=== PATIENT | female | born 1935 | race Caucasian/White ===

== ENCOUNTER 2016-09-10 14:31 | Emergency (ER) | payer MEDICARE, MEDICAID ==
[~2016-09-10] VITALS: Ht 160 cm; Wt 68.0 kg
--- NOTE | 2016-09-10 14:35 | ED Fall/Injury ---
General Stated Complaint: FALL Source: patient Exam Limitations: no limitations History of Present Illness Time seen by provider: 14:33 Initial Comments To ER with reports of a fall. She is from [facility] and [facility] and reportedly fell out of her chair. She arrives per EMS. She does complain of neck pain as her only complaint. She does not recall what happened but staff reports that she did not hit her head. Cervical collar applied upon arrival to ER. She denies paresthesias or pain down either upper or lower extremity. Occurred: just prior to arrival Severity: moderate Injuries/Pain Location: neck Associated Symptoms (Fall): Neck Pain Allergies and Home Medications Allergies Coded Allergies: morphine (Verified Allergy, Severe, EDENA, 09/10/16) Constitutional: see HPI Eyes: No Symptoms Reported Ears, Nose, Mouth, Throat: no symptoms reported Respiratory: no symptoms reported Genitourinary: no symptoms reported Musculoskeletal: see HPI neck pain Skin: no symptoms reported Psychiatric/Neurological: No Symptoms Reported Physical Exam Vital Signs Vital Sign - Last 12Hours 09/10/16 14:31 Temp 98.0 Pulse 60 Resp 18 B/P 127/60 Pulse Ox 91 Capillary Refill : General Appearance: WD/WN no apparent distress HEENT: PERRL/EOMI normal ENT inspection Neck: tender lateral tender midline Respiratory: no respiratory distress no accessory muscle use Gastrointestinal: normal bowel sounds non tender soft Extremities: normal range of motion non-tender Neurologic/Psychiatric: alert normal mood/affect oriented x 3 Skin: normal color Miquel Coma Score Best Eye Response: (4) Open Spontaneously Best Verbal Response: (5) Oriented Best Motor Response: (6) Obeys Commands [place] Total: 15 Progress/Results/Core Measures Results/Orders Lab Results Laboratory Tests Test 09/10/16 14:43 Range/Units Basophils # (Auto) 0.0 0.0-0.1 10^3/uL Basophils (%) (Auto) 0 0-10 % Eosinophils # (Auto) 0.8 H 0.0-0.3 10^3/uL Eosinophils (%) (Auto) 7 0-10 % Hematocrit 40 35-52 % Hemoglobin 12.7 11.5-16.0 G/DL Lymphocytes # (Auto) 2.1 1.0-4.0 X 10^3 Lymphocytes (%) (Auto) 20 12-44 % Mean Corpuscular Hemoglobin 30 25-34 PG Mean Corpuscular Hemoglobin Concent 32 32-36 G/DL Mean Corpuscular Volume 93 80-99 FL Mean Platelet Volume 9.4 7.4-10.4 FL Monocytes # (Auto) 0.9 0.0-1.0 X 10^3 Monocytes (%) (Auto) 8 0-12 % Neutrophils # (Auto) 6.8 1.8-7.8 X 10^3 Neutrophils (%) (Auto) 65 42-75 % Platelet Count 420 H 130-400 10^3/uL Red Blood Count 4.25 L 4.35-5.85 10^6/uL Red Cell Distribution Width 13.1 10.0-14.5 % White Blood Count 10.5 4.3-11.0 10^3/uL My Orders Orders-LALITO WEBER APRN Cbc With Automated Diff (09/10/16 14:32) Ct Head/Cervical Spine Wo (09/10/16 14:32) Ct Lumbar Spine Wo (09/10/16 14:32) Cervical Collar (09/10/16 14:32) Vital Signs/I&O Vital Sign - Last 12Hours 09/10/16 14:31 Temp 98.0 Pulse 60 Resp 18 B/P 127/60 Pulse Ox 91 Diagnostic Imaging Diagonstic Imaging: CT Comments NAME: JELLY BRAVO [facility] REC#: [id number] PT STATUS: REG ER : 1935 PHYSICIAN: LALITO WEBER APRN ADMIT DATE: 09/10/16/ER Draft Date of Exam:09/10/16 CT HEAD/CERVICAL SPINE WO PROCEDURE: CT head and CT cervical spine without contrast. TECHNIQUE: Multiple contiguous axial images were obtained through the brain and cervical spine without the use of intravenous contrast. Sagittal and coronal reformations through the cervical spine were then performed. INDICATION: Fall. Head injury. COMPARISON: CT head without contrast 06/04/2009. FINDINGS: Chronic encephalomalacia in the left occipital lobe and both cerebellar hemispheres. 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 Advanced generalized cerebral and cerebellar parenchymal volume loss. No CT evidence of acute infarction. Bilateral basal ganglia calcifications. Intracranial vascular calcifications. No intracranial hemorrhage, mass effect, hydrocephalus or extra-axial fluid collections. Osseous structures are intact. The orbits and visualized paranasal sinuses are unremarkable. CT cervical spine: Examination is limited by motion artifact despite repeated scanning of the upper cervical spine. Normal alignment. Vertebral body heights are maintained. No acute fractures are identified. Degenerative endplate changes result in at least mild spinal canal narrowing at C3-C4. Uncovertebral joint and facet arthropathy result in multilevel moderate to advanced neuroforaminal narrowing bilaterally. Arterial calcifications including the carotid bifurcations. Left subclavian vascular stent. IMPRESSION: 1. No acute intracranial CT findings. 2. Cervical spine CT is limited by motion artifact. There are no acute findings identified. Dictated on workstation # [id number] Dict: 09/10/16 1535 Trans: 09/10/16 1544 LEIGH [id number] Interpreted by: ILAN THAKUR MD Electronically signed by: NAME: JELLY BRAVO [facility] REC#: [id number] PT STATUS: REG ER : 1935 PHYSICIAN: LALITO WEBER APRN ADMIT DATE: 09/10/16/ER Draft Date of Exam:09/10/16 CT LUMBAR SPINE WO PROCEDURE: CT lumbar spine without contrast. TECHNIQUE: Multiple contiguous axial images were obtained through the lumbar spine without the use of intravenous contrast. Sagittal and coronal reformations were then performed. INDICATION: Fall with back pain. FINDINGS: Sagittal reformatted images show good alignment of the vertebral bodies. Body height is well maintained with no compression fractures. Facets are intact with no pars defect. There is advanced degenerative facet disease at L4-L5 and L5-S1. There is diffuse degenerative disc disease with loss of disc space and hypertrophic bony lipping throughout the lumbar spine. There is moderate central canal stenosis at L4-L5 due to rather marked posterior facet and ligamentous hypertrophy. Paraspinal soft tissues show diffuse aneurysmal dilatation of the entire abdominal aorta. Maximal diameter is 5 cm. IMPRESSION: 1. Diffuse degenerative disc and facet disease with no acute abnormalities of the spine. There is moderate spinal stenosis noted at the L4-L5 level due to marked posterior facet and ligamentous hypertrophy. 2. Long segment abdominal aortic aneurysm measuring upwards of 5 cm in diameter. Previous CT scan of the abdomen on 05/11/2011 showed abdominal aorta measuring 3.8 cm at that time. Dictated on workstation # [id number] Dict: 09/10/16 1541 Trans: 09/10/16 1548 [facility] [id number] Interpreted by: DELANEY ÁLVAREZ MD Electronically signed by: Departure Impression Impression: Primary Impression: [facility] Qualified Code: W19.XXXA - Unspecified fall, initial encounter Additional Impression: Enlarging abdominal aortic aneurysm Disposition: 01 HOME, SELF-CARE Condition: Stable Departure-Patient Inst. Decision time for Depature: 15:54 Referrals: ALEXANDRA ZAMORA MD (PCP/Family) Primary Care Physician Patient Instructions: NO INSTRUCTIONS GIVEN Add. Discharge Instructions: 1. Return to ER for any concerns 2. Follow-up with Dr. Zamora next week 3. Be aware that you're abdominal aortic aneurysm is enlarging. On the last CT scan (in 2010) it measured about 3.8 cm and today at about 5.0 cm. This warrants follow-up but no emergent treatment. Copy Copies To 1: ALEXANDRA ZAOMRA MD, PETER J APRN Sep 10, 2016 14:35
[2016-09-10 14:51] LABS: BASOPHILS % (AUTO) 0 % (0-10); EOSINOPHILS # (AUTO) 0.8 10^3/uL (0.0-0.3); EOSINOPHILS % (AUTO) 7 % (0-10); LYMPHOCYTES # (AUTO) 2.1 X 10^3 (1.0-4.0); LYMPHOCYTES % (AUTO) 20 % (12-44); MEAN CORPUSCULAR HEMOGLOBIN 30 PG (25-34); MEAN CORPUSCULAR HGB CONC 32 G/DL (32-36); MEAN CORPUSCULAR VOLUME 93 FL (80-99); MEAN PLATELET VOLUME 9.4 FL (7.4-10.4); MONOCYTES # (AUTO) 0.9 X 10^3 (0.0-1.0); MONOCYTES % (AUTO) 8 % (0-12); NEUTROPHILS # (AUTO) 6.8 X 10^3 (1.8-7.8); NEUTROPHILS % (AUTO) 65 % (42-75); PLATELET COUNT 420 10^3/uL (130-400); RED BLOOD COUNT 4.25 10^6/uL (4.35-5.85); RED CELL DISTRIBUTION WIDTH 13.1 % (10.0-14.5); WHITE BLOOD COUNT 10.5 10^3/uL (4.3-11.0)
--- NOTE | 2016-09-10 15:44 | Diagnostic Imaging Report ---
PROCEDURE: CT head and CT cervical spine without contrast. TECHNIQUE: Multiple contiguous axial images were obtained through the brain and cervical spine without the use of intravenous contrast. Sagittal and coronal reformations through the cervical spine were then performed. INDICATION: Fall. Head injury. COMPARISON: CT head without contrast 06/04/2009. FINDINGS: Chronic encephalomalacia in the left occipital lobe and both cerebellar hemispheres. 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 Advanced generalized cerebral and cerebellar parenchymal volume loss. No CT evidence of acute infarction. Bilateral basal ganglia calcifications. Intracranial vascular calcifications. No intracranial hemorrhage, mass effect, hydrocephalus or extra-axial fluid collections. Osseous structures are intact. The orbits and visualized paranasal sinuses are unremarkable. CT cervical spine: Examination is limited by motion artifact despite repeated scanning of the upper cervical spine. Normal alignment. Vertebral body heights are maintained. No acute fractures are identified. Degenerative endplate changes result in at least mild spinal canal narrowing at C3-C4. Uncovertebral joint and facet arthropathy result in multilevel moderate to advanced neuroforaminal narrowing bilaterally. Arterial calcifications including the carotid bifurcations. Left subclavian vascular stent. IMPRESSION: 1. No acute intracranial CT findings. 2. Cervical spine CT is limited by motion artifact. There are no acute findings identified. Dictated by: Dictated on workstation # [id number]
--- NOTE | 2016-09-10 15:48 | Diagnostic Imaging Report ---
PROCEDURE: CT lumbar spine without contrast. TECHNIQUE: Multiple contiguous axial images were obtained through the lumbar spine without the use of intravenous contrast. Sagittal and coronal reformations were then performed. INDICATION: Fall with back pain. FINDINGS: Sagittal reformatted images show good alignment of the vertebral bodies. Body height is well maintained with no compression fractures. Facets are intact with no pars defect. There is advanced degenerative facet disease at L4-L5 and L5-S1. There is diffuse degenerative disc disease with loss of disc space and hypertrophic bony lipping throughout the lumbar spine. There is moderate central canal stenosis at L4-L5 due to rather marked posterior facet and ligamentous hypertrophy. Paraspinal soft tissues show diffuse aneurysmal dilatation of the entire abdominal aorta. Maximal diameter is 5 cm. IMPRESSION: 1. Diffuse degenerative disc and facet disease with no acute abnormalities of the spine. There is moderate spinal stenosis noted at the L4-L5 level due to marked posterior facet and ligamentous hypertrophy. 2. Long segment abdominal aortic aneurysm measuring upwards of 5 cm in diameter. Previous CT scan of the abdomen on 05/11/2011 showed abdominal aorta measuring 3.8 cm at that time. Dictated by: Dictated on workstation # [id number]
[2016-09-10 16:25] VITALS: BP 149/82
== END 2016-09-10 16:25 | disposition home or self-care (01) ==
LOC: EDUNIT# 14:31 → ER 14:32
DX: S19.9XXA Unspecified injury of neck, initial encounter (principal); M47.816 Spondylosis without myelopathy or radiculopathy, lumbar region; I71.4 Abdominal aortic aneurysm, without rupture; W07.XXXA Fall from chair, initial encounter; Y92.122 Bedroom in nursing home as the place of occurrence of the external cause; Y99.8 Other external cause status
CPT/HCPCS: 36415; 70450; 72125; 72131; 85025; 99283

== ENCOUNTER → 2016-09-19 | Outpatient (CLI) | payer MEDICARE, MEDICAID ==
[~2016-09-19] MED LIST: ALBU2.5V4; ALPR0.254 PO; AMLO5TAB2 PO; ASPI-808 PO; DONE10TA41 PO; DULO60CA58 PO; FENT1PAT6; FENT1PAT8; GABA-490 PO; HYDR-3812 PO; IBUP-1773 PO; LISI-556 PO; LISI2.5T; MECL-106 PO; ONDA4TAB11 PO; POTA10TA10 PO; RANI150T11 PO; ROPI3TAB2 PO; RT-ALBUINH INH; SENN-140 PO
--- OUTSIDE RECORDS SUMMARY | 2016-09-19 11:26 | XMS REPORT | Continuity of Care Document ---
Author Author [facility] Organization [facility] Address Unknown Phone Unavailable Care Team Providers Care Manager Enterprise Content Management Name Role Phone ALEXANDRA ZAMORA MD PCP Insurance Providers Payer Name Policy Number Subscriber Name Relationship Wps Medicare [id number] Ольга Caal 18 Self / Same As Patient Blue Cross Mcr Supp [id number] Ольга Caal 18 Self / Same As Patient [employer] Ольга Caal 18 Self / Same As Patient Advance Directives Directive Response Recorded Date/Time Advance Directives No 09/10/16 2:39pm Resuscitation Status Full Code 09/10/16 2:39pm Chief Complaint and Reason for Visit Chief Complaint Trauma-Non Activation [facility] Enlarging abdominal aortic aneurysm Problems Active Problems Medical Problem Onset Date Status Enlarging abdominal aortic aneurysm Unknown Acute [facility] Unknown Acute Medications No medication information available. Social History Social History Problem Response Recorded Date/Time Alcohol Use Denies Use 09/10/2016 2:39pm Recreational Drug Use No 09/10/2016 2:39pm Recent Foreign Travel No 09/10/2016 2:31pm Recent Infectious Disease Exposure No 09/10/2016 2:31pm Smoking Status Current Everyday Smoker 09/10/2016 2:39pm Type Used Cigarettes 09/10/2016 2:39pm Recent Hopitalizations No 09/10/2016 2:39pm Query Response Start Date Stop Date Smoking Status Current Everyday Smoker Hospital Discharge Instructions No hospital discharge instructions. Plan of Care Discharge Date 09/10/16 4:25pm Disposition 01 HOME, SELF-CARE Condition at Discharge Stable Instructions/Education Provided NO INSTRUCTIONS GIVEN Prescriptions See Medication Section Referrals ALEXANDRA ZAMORA MD - Primary Care Physician Additional Instructions/Education 1. Return to ER for any concerns 2. Follow-up with Dr. Zamora next week 3. Be aware that you're abdominal aortic aneurysm is enlarging. On the last CT scan (in 2010) it measured about 3.8 cm and today at about 5.0 cm. This warrants follow-up but no emergent treatment. Functional Status No functional status results. Allergies, Adverse Reactions, Alerts Allergen Type Severity Reaction Status Last Updated Morphine Allergy Severe EDENA Active 09/10/16 Immunizations No immunization records. Vital Signs Acute Vital Signs Vital Response Date/Time Temperature (Fahrenheit) 98 degrees F (97.6 - 99.5) 09/10/2016 2:31pm Temperature (Calculated Celsius) 36.6696 degrees C (36.4 - 37.5) 09/10/2016 2 :31pm Temperature Source Tympanic 09/10/2016 2:31pm Pulse Rate (adult) 60 bpm (60 - 90) 09/10/2016 2:31pm Respiratory Rate 18 bpm (12 - 24) 09/10/2016 2:31pm O2 Sat by Pulse Oximetry 91 % (88 - 100) 09/10/2016 2:31pm Blood Pressure 127/60 mm Hg 09/10/2016 2:31pm Blood Pressure Mean 82 mm Hg 09/10/2016 2:31pm Pain Numeric Pain Scale 5-Moderate Pain 09/10/2016 2:31pm Height (Feet) 5 feet 09/10/2016 2:31pm Height (Inches) 3 inches 09/10/2016 2:31pm Height (Calculated Centimeters) 160.800610 cm 09/10/2016 2:31pm Weight (Pounds) 150 pounds 09/10/2016 2:31pm Weight (Calculated Kilograms) 68.308703 kilograms 09/10/2016 2:31pm Capillary Refill Capillary Refill Less Than 3 Seconds 09/10/2016 2:31pm Height 5 ft 3 in Weight 150 lb Body Mass Index 26.6 kg/m^2 Results Laboratory Results Test Name Result Units Flags Reference Collection Date/Time Result Date/ Time Comments White Blood Count 10.5 10^3/uL 4.3-11.0 09/10/2016 2:43pm 09/10/2016 2: 54pm Red Blood Count 4.25 10^6/uL L 4.35-5.85 09/10/2016 2:43pm 09/10/2016 2: 54pm Hemoglobin 12.7 G/DL 11.5-16.0 09/10/2016 2:43pm 09/10/2016 2:54pm Hematocrit 40 % 35-52 09/10/2016 2:43pm 09/10/2016 2:54pm Mean Corpuscular Volume 93 FL 80-99 09/10/2016 2:43pm 09/10/2016 2: 54pm Mean Corpuscular Hemoglobin 30 PG 25-34 09/10/2016 2:43pm 09/10/2016 2: 54pm Mean Corpuscular Hemoglobin Concent 32 G/DL 32-36 09/10/2016 2:43pm 10/2016 2:54pm Red Cell Distribution Width 13.1 % 10.0-14.5 09/10/2016 2:43pm 2016 2:54pm Platelet Count 420 10^3/uL H 130-400 09/10/2016 2:43pm 09/10/2016 2:54pm Mean Platelet Volume 9.4 FL 7.4-10.4 09/10/2016 2:43pm 09/10/2016 2: 54pm Neutrophils (%) (Auto) 65 % 42-75 09/10/2016 2:43pm 09/10/2016 2:54pm Lymphocytes (%) (Auto) 20 % 12-44 09/10/2016 2:43pm 09/10/2016 2:54pm Monocytes (%) (Auto) 8 % 0-12 09/10/2016 2:43pm 09/10/2016 2:54pm Eosinophils (%) (Auto) 7 % 0-10 09/10/2016 2:43pm 09/10/2016 2:54pm Basophils (%) (Auto) 0 % 0-10 09/10/2016 2:43pm 09/10/2016 2:54pm Neutrophils # (Auto) 6.8 X 10^3 1.8-7.8 09/10/2016 2:43pm 09/10/2016 2: 54pm Lymphocytes # (Auto) 2.1 X 10^3 1.0-4.0 09/10/2016 2:43pm 09/10/2016 2: 54pm Monocytes # (Auto) 0.9 X 10^3 0.0-1.0 09/10/2016 2:43pm 09/10/2016 2: 54pm Eosinophils # (Auto) 0.8 10^3/uL H 0.0-0.3 09/10/2016 2:43pm 09/10/2016 2 :54pm Basophils # (Auto) 0.0 10^3/uL 0.0-0.1 09/10/2016 2:43pm 09/10/2016 2: 54pm Procedures No known history of procedures. Encounters Encounter Location Arrival/Admit Date Discharge/Depart Date Attending Provider Departed Emergency Room [facility] 09/10/16 2:32pm 09/10 4:25pm LALITO WEBER APRN Recent Diagnosis
[2016-09-19 11:50] LABS: BILIRUBIN,URINE NEGATIVE (NEGATIVE); KETONES,URINE NEGATIVE (NEGATIVE); LEUKOCYTE ESTERASE ,URINE NEGATIVE (NEGATIVE); NITRITE,URINE NEGATIVE (NEGATIVE); PH,URINE 5 (5-9); PROTEIN,URINE 1+ (NEGATIVE); UROBILINOGEN,URINE NORMAL (NORMAL)
[2016-09-19 11:51] LABS: WBC,URINE RARE /HPF
== END ==
LOC: LABNPT 11:22
PROVIDERS: ATTEND Internal Medicine
DX: R39.198 Other difficulties with micturition (principal)
CPT/HCPCS: 81000

== ENCOUNTER 2016-09-20 05:58 | Emergency (ER) | payer MEDICARE, MEDICAID ==
[~2016-09-20] VITALS: Ht 160 cm; Wt 68.0 kg
--- OUTSIDE RECORDS SUMMARY | 2016-09-20 06:05 | XMS REPORT | Continuity of Care Document ---
Author Author [facility] Organization [facility] Address Unknown Phone Unavailable Care Team Providers Care Talking Books Library Clerk Name Role Phone ALEXANDRA ZAMORA MD PCP Insurance Providers Payer Name Policy Number Subscriber Name Relationship [employer]ps Medicare [id number] Ольга Caal 18 Self / Same As Patient Blue Cross Mcr Supp [id number] Ольга Caal 18 Self / Same As Patient [employer] Ольга Caal 18 Self / Same As Patient Advance Directives Directive Response Recorded Date/Time Advance Directives No 09/10/16 2:39pm Resuscitation Status Full Code 09/10/16 2:39pm Chief Complaint and Reason for Visit Chief Complaint Trauma-Non Activation Reason for Visit Fall at [facility] Enlarging abdominal aortic aneurysm Problems Active Problems Medical Problem Onset Date Status Enlarging abdominal aortic aneurysm Unknown Acute Fall at [facility] Unknown Acute Medications No medication information available. [...] 3 inches 09/10/2016 2:31pm Height (Calculated Centimeters) 160.287973 cm 09/10/2016 2:31pm Weight (Pounds) 150 pounds 09/10/2016 2:31pm Weight (Calculated Kilograms) 68.864004 kilograms 09/10/2016 2:31pm Capillary Refill Capillary Refill [...] Date Attending Provider Departed Emergency Room [facility] 09/10/16 2:32pm 09/10 4:25pm LALITO WEBER APRN Recent Diagnosis
[2016-09-20] MEDS ORDERED: RT-ALBUTEROL/IPRATROPIUM 3 ML (DUONEB) VIAL INH ONE (06:15)
[2016-09-20 06:24] LABS: BASOPHILS % (AUTO) 0 % (0-10); EOSINOPHILS # (AUTO) 0.8 10^3/uL (0.0-0.3); EOSINOPHILS % (AUTO) 8 % (0-10); LYMPHOCYTES # (AUTO) 3.2 X 10^3 (1.0-4.0); LYMPHOCYTES % (AUTO) 31 % (12-44); MEAN CORPUSCULAR HEMOGLOBIN 30 PG (25-34); MEAN CORPUSCULAR HGB CONC 31 G/DL (32-36); MEAN CORPUSCULAR VOLUME 96 FL (80-99); MEAN PLATELET VOLUME 9.8 FL (7.4-10.4); MONOCYTES # (AUTO) 0.9 X 10^3 (0.0-1.0); MONOCYTES % (AUTO) 9 % (0-12); NEUTROPHILS # (AUTO) 5.2 X 10^3 (1.8-7.8); NEUTROPHILS % (AUTO) 52 % (42-75); PLATELET COUNT 357 10^3/uL (130-400); RED BLOOD COUNT 3.99 10^6/uL (4.35-5.85); RED CELL DISTRIBUTION WIDTH 13.1 % (10.0-14.5); WHITE BLOOD COUNT 10.2 10^3/uL (4.3-11.0)
[2016-09-20 06:28] LABS: PROTHROMBIN TIME PATIENT 12.8 SEC (12.2-14.7)
--- NOTE | 2016-09-20 06:32 | ED General ---
General Chief Complaint: General Problems/Pain Stated Complaint: NOT FEELING GOOD Nursing Triage Note: Pt presents [facility] ED [facility] with c/o SOA, "not feeling well", low O2 sat (88% on RA per NH nurse), and feeling like she will . O2 95% on 2.5 L/M per NC. VSS. Nursing Sepsis Screen: No Definite Risk Source of Information: Patient, EMS, Family, Senior Care Records, Old Records Exam Limitations: No Limitations History of Present Illness Time Seen by Provider: 06:00 Initial Comments This 81-year-old woman from [facility] arrives by EMS with complaints of generalized weakness, generalized illness for couple of days, and reported low oxygen saturations and blood pressure. She is afebrile and recalls no fevers at the [facility]. skilled nursing documentation reports an oxygen saturation of 88 percent on 3 L nasal cannula and a blood pressure of 90/56. EMS reported that there was poor flow through the nasal cannula on their assessment. Patient communicated a "feeling of dying" to [facility] staff. She reports having generalized aches and pains but no specific focal pain. She is weak at baseline and not ambulatory since having a brain bleed, but weakness has worsened in recent days. EMS notes she is very weak on transfer. She chronically uses 3 L/m on nasal cannula. She denies nausea, vomiting, or diarrhea. She has chronic constipation. She does feel short of breath but reports no chest pain. Family reports she has slept most of the last 24 hours. Her pupils are noted to be constricted, and she takes hydrocodone as well as 37 g of fentanyl patches. No extra patches were found on her skin. Mucous membranes are notably dry. Patient has mild left lower quadrant tenderness. Dr. Zamora is her PCP. She has a DO NOT RESUSCITATE order. Allergies and Home Medications Allergies Coded Allergies: morphine (Verified Allergy, Severe, EDENA, 09/10/16) Home Medications Albuterol Sulfate 18 Gm Hfa.aer.ad #18 1 PUFF INH BID (Reported) Albuterol Sulfate 2.5 Mg/3 Ml Vial.neb #180 PRN SHORTNESS OF BREATH (Reported) Alprazolam 0.25 Mg Tablet #90 1 TAB PO TID PRN PRN anxiety (Reported) Amlodipine Besylate 5 Mg Tablet #30 1 TAB PO DAILY (Reported) Aspirin 325 Mg Tablet 325 MG PO DAILY (Reported) Donepezil HCl 10 Mg Tablet #30 10 MG PO DAILY (Reported) Duloxetine HCl 60 Mg Capsule.dr #30 60 MG PO jeremias (Reported) Fentanyl 1 Each Patch.td72 #10 (Reported) Fentanyl 1 Each Patch.td72 #10 (Reported) Gabapentin 400 Mg Capsule #90 1 TAB PO TID (Reported) Hydrocodone/Acetaminophen 1 Each Tablet #60 1 TAB PO Q4H PRN PRN PAIN (Reported ) Ibuprofen 600 Mg Tablet #120 1 TAB PO QID PRN PRN PAIN (Reported) Lisinopril 2.5 Mg Tablet #2 (Reported) Meclizine HCl 25 Mg Tablet #90 1 TAB PO TID (Reported) Ondansetron 4 Mg Tab.rapdis #30 1 TAB PO PRN nausea (Reported) Potassium Chloride 10 Meq Tablet.er #30 1 TAB PO DAILY (Reported) Ranitidine HCl 150 Mg Tablet #30 1 TAB PO DAILY (Reported) Ropinirole HCl 3 Mg Tablet #90 1 TAB PO TID (Reported) Sennosides 8.6 Mg Tablet 8.6 MG PO daiy (Reported) Constitutional: see HPI EENTM: see HPI Respiratory: see HPI Cardiovascular: no symptoms reported Gastrointestinal: see HPI Genitourinary: no symptoms reported : No Musculoskeletal: see HPI Skin: no symptoms reported Psychiatric/Neurological: No Symptoms Reported Hematologic/Lymphatic: No Symptoms Reported Past Ypupbmz-Goebqt-Chsilh Hx Patient Social History Alcohol Use: Denies Use Recreational Drug Use: No Smoking Status: Unknown if Ever Smoked Type Used: Cigarettes 2nd Hand Smoke Exposure: No Recent Foreign Travel: No Contact w/Someone Who Travel: No Recent Infectious Disease Expo: No Recent Hopitalizations: No Seasonal Allergies Seasonal Allergies: No Surgeries HX Surgeries: Yes (pulmonary surgery) Surgeries: Gallbladder, Orthopedic, Vascular Surgery (peripheral vascular stents in the left arm) Respiratory Hx Respiratory Disorders: Yes Respiratory Disorders: COPD Cardiovascular Hx Cardiac Disorders: Yes Cardiac Disorders: Aneurysm (infrarenal abdominal aortic aneurysm), Hypertension, Peripheral Vascular Neurological Hx Neurological Disorders: Yes (Restless leg syndrome) Neurological Disorders: Dementia (Alzheimer's), Headaches /Migraines, Neuropathy, Stroke (hemorrhagic) Genitourinary Hx Genitourinary Disorders: No Gastrointestinal Hx Gastrointestinal Disorders: Yes Gastrointestinal Disorders: Chronic Constipation Endocrine Hx Endocrine Disorders: No HEENT HX ENT Disorders: Yes (DIPLOPIA) Cancer Hx Cancer: No Psychosocial Hx Psychiatric Problems: Yes (conversion disorder) Behavioral Health Disorders: Sleep Difficulties, Anxiety, Depression Physical Exam-Suspected Sepsis Physical Exam Vital Signs Vital Sign - Last 12Hours 09/20/16 06:04 Temp 98.4 Pulse 60 Resp 18 B/P 119/58 Pulse Ox 95 O2 Delivery Nasal Cannula O2 Flow Rate 2.5 FiO2 95 Capillary Refill : Less Than 3 Seconds Blood Pressure Mean: 78 General Appearance: WD/WN Other (somewhat ill-appearing) HEENT: PERRL/EOMI Normal ENT Inspection Other (oropharynx dry) Neck: Normal Inspection Respiratory: No Accessory Muscle Use No Respiratory Distress Crackles (faint in the bilateral bases) Other (decreased air movement) Cardiovascular: Regular Rate, Rhythm No Edema No Murmur Gastrointestinal: Normal Bowel Sounds Soft Tenderness (mild in the left lower quadrant) Extremity: Normal Capillary Refill Normal Inspection No Pedal Edema Neurologic/Psychiatric: Alert Normal Mood/Affect slimer II-XII Norm as Tested Motor Weakness (generalized) Skin: normal color warm/dry other (brisk capillary refill) Progress/Results/Core Measures Suspected Sepsis Recent Fever Within 48 Hours: No Infection Criteria Present: Suspected New Infection New/Unexplained Altered Menta: No Sepsis Screen: No Definite Risk Sepsis Diagnosis: SIRS Temperature:98.4 Pulse: 60 Respiratory Rate: 18 Laboratory Tests 09/20/16 05:50: White Blood Count 10.2 Blood Pressure 119 /58 Mean: 78 Laboratory Tests 09/20/16 05:50: Creatinine 1.00, INR Comment 1.0, Platelet Count 357, Total Bilirubin 0.3 Results/Orders Lab Results Laboratory Tests Test 09/20/16 05:50 09/20/16 07:53 Range/Units Activated Partial Thromboplast Time 29 24-35 SEC Alanine Aminotransferase (ALT/SGPT) 32 0-55 U/L Albumin 3.2 3.2-4.5 G/DL Alkaline Phosphatase 79 40-136 U/L Anion Gap 9 5-14 MMOL/L Aspartate Amino Transf (AST/SGOT) 21 5-34 U/L B-Type Natriuretic Peptide 58.2 <100.0 PG/ML BUN/Creatinine Ratio 25 Basophils # (Auto) 0.0 0.0-0.1 10^3/uL Basophils (%) (Auto) 0 0-10 % Blood Urea Nitrogen 25 H 7-18 MG/DL C-Reactive Protein High Sensitivity 1.96 H 0.00-0.50 MG/DL Calcium Level 8.4 L 8.5-10.1 MG/DL Carbon Dioxide Level 25 21-32 MMOL/L Chloride Level 107 98-107 MMOL/L Creatinine 1.00 0.60-1.30 MG/DL Eosinophils # (Auto) 0.8 H 0.0-0.3 10^3/uL Eosinophils (%) (Auto) 8 0-10 % Estimat Glomerular Filtration Rate 53 Free Thyroxine 0.73 0.70-1.48 NG/DL Glucose Level 94 70-105 MG/DL Hematocrit 38 35-52 % Hemoglobin 11.9 11.5-16.0 G/DL INR Comment 1.0 0.8-1.4 Lactic Acid Level 1.1 0.5-2.0 MMOL/L Lymphocytes # (Auto) 3.2 1.0-4.0 X 10^3 Lymphocytes (%) (Auto) 31 12-44 % Magnesium Level 2.1 1.8-2.4 MG/DL Mean Corpuscular Hemoglobin 30 25-34 PG Mean Corpuscular Hemoglobin Concent 31 L 32-36 G/DL Mean Corpuscular Volume 96 80-99 FL Mean Platelet Volume 9.8 7.4-10.4 FL Monocytes # (Auto) 0.9 0.0-1.0 X 10^3 Monocytes (%) (Auto) 9 0-12 % Neutrophils # (Auto) 5.2 1.8-7.8 X 10^3 Neutrophils (%) (Auto) 52 42-75 % Platelet Count 357 130-400 10^3/uL Potassium Level 4.5 3.6-5.0 MMOL/L Prothrombin Time 12.8 12.2-14.7 SEC Red Blood Count 3.99 L 4.35-5.85 10^6/uL Red Cell Distribution Width 13.1 10.0-14.5 % Sodium Level 141 135-145 MMOL/L Thyroid Stimulating Hormone (TSH) 5.28 H 0.35-4.94 UIU/ML Total Bilirubin 0.3 0.1-1.0 MG/DL Total Protein 6.4 6.4-8.2 G/DL Troponin I < 0.30 <0.30 NG/ML White Blood Count 10.2 4.3-11.0 10^3/uL Urine Bacteria NEGATIVE /HPF Urine Bilirubin NEGATIVE NEGATIVE Urine Casts NONE /LPF Urine Clarity CLEAR Urine Color YELLOW Urine Crystals NONE /LPF Urine Culture Indicated NO Urine Glucose (UA) NEGATIVE NEGATIVE Urine Ketones NEGATIVE NEGATIVE Urine Leukocyte Esterase 1+ H NEGATIVE Urine Mucus NEGATIVE /LPF Urine Nitrite NEGATIVE NEGATIVE Urine Protein 1+ H NEGATIVE Urine RBC NONE /HPF Urine RBC (Auto) NEGATIVE NEGATIVE Urine Specific [place] 1.025 H 1.016-1.022 Urine Squamous Epithelial Cells 25-50 H /HPF Urine Urobilinogen NORMAL NORMAL MG/DL Urine WBC RARE /HPF Urine pH 5 5-9 Micro Results Microbiology 09/20/16 Influenza Types A,B Antigen (GUY) - Final, Complete My Orders Orders-REG HUSAIN MD BNP (09/20/16 06:14) Cbc With Automated Diff (09/20/16 06:14) Comprehensive Metabolic Panel (09/20/16 06:14) Hs C Reactive Protein (09/20/16 06:14) Lactic Acid Analyzer (09/20/16 06:14) Magnesium (09/20/16 06:14) Ua Culture If Indicated (09/20/16 06:14) Saline Lock/Iv-Start (09/20/16 06:14) Chest 1 View, Ap/Pa Only (09/20/16 06:14) Abdomen/Kub 1view (09/20/16 06:14) Albuterol/Ipra Inhalation Soln (Duoneb I (09/20/16 06:15) Svn Sm Volume Nebulizer Rt-Rfs (09/20/16 06:14) Troponin I (09/20/16 06:14) Blood Culture (09/20/16 06:14) Protime With Inr (09/20/16 06:14) Partial Thromboplastin Time (09/20/16 06:14) O2 (09/20/16 06:14) Vital Signs Adult Sepsis Patie Q1HR (09/20/16 06:14) Remove Rings In Anticipation O (09/20/16 06:14) Thyroid Stimulating Hormone (09/20/16 06:39) Influenza A And B Antigens (09/20/16 06:39) Ns Iv 500 Ml (Sodium Chloride 0.9%) (09/20/16 07:49) Free T4 (Free Thyroxine) (09/20/16 07:50) Medications Given in ED Vital Signs/I&O Capillary Refill : Less Than 3 Seconds Blood Pressure Mean: 78 Progress Note #1: Time: 06:38 Progress Note Patient has been seen and examined. DuoNeb treatment administered. Labs and x- rays pending. Progress Note #2: Progress Note Patient perked up considerably after IV fluids, DuoNeb administration, and oxygenation. I suspect that her feeling of illness, altered mental status, and weakness were secondary to hypoxia from poor delivery of oxygen through her nasal cannula as well as effects of COPD. Pupils were relatively constricted also. Narcotic use may have played a role. ECG Initial ECG Impression Date: Sep 20, 2016 Initial ECG Impression Time: 05:56 Initial ECG Rate: 60 Initial ECG Rhythm: Normal Sinus Initial ECG Intervals: Normal Comment Normal sinus rhythm with no abnormal intervals or axis deviation. There is borderline ST elevation most notable in lead II. This does not meet diagnostic criteria. Diagnostic Imaging Diagonstic Imaging: Xray Plain Films/CT/US/NM/MRI: chest Comments Chest x-ray viewed by me and compared with prior. Report reviewed. See report below: NAME: JELLY BRAVO [facility] REC#: [id number] PT STATUS: REG ER : 1935 PHYSICIAN: REG HUSAIN MD ADMIT DATE: 09/20/16/ER Draft Date of Exam:09/20/16 CHEST 1 VIEW, AP/PA ONLY INDICATION: Shortness of breath. FINDINGS: No focal consolidation is apparent. Lung evaluation limited by suboptimal penetration. No effusion or pneumothorax. Heart size within the upper limits of normal. No convincing pathological distention of the vascularity. Left upper extremity vascular stents noted. IMPRESSION: No acute finding identified. Dictated on workstation # [id number] Dict: 09/20/16 0658 Trans: 09/20/16 0737 BRAULIO [id number] Interpreted by: LALIT CAREY Diagonstic Imaging: Xray Plain Films/CT/US/NM/MRI: abdomen Comments Abdominal x-ray viewed by me and report reviewed. See report below: NAME: JELLY BRAVO [facility] REC#: [id number] PT STATUS: REG ER : 1935 PHYSICIAN: REG HUSAIN MD ADMIT DATE: 09/20/16/ER Draft Date of Exam:09/20/16 ABDOMEN/KUB 1VIEW INDICATION: Back pain. Exam compared with CT date 09/10/2016. FINDINGS: Calcified abdominal aortic aneurysm partly visualized at this exam. Where seen on both studies not obviously changed although its evaluation very limited on both studies. The bowel gas pattern unremarkable. No pathological fecal loading. No bowel obstruction. Postsurgical changes chronic. IMPRESSION: Atherosclerotic aortic aneurysm. Nonobstructive bowel gas pattern. Dictated on workstation # [id number] Dict: 09/20/16711 Trans: 09/20/16 0815 BRAULIO [id number] Interpreted by: LALIT CAREY Departure Impression Impression: Primary Impression: Altered mental status Qualified Code: R41.82 - Altered mental status, unspecified Additional Impressions: Hypoxia COPD exacerbation Generalized weakness Disposition: 01 HOME, SELF-CARE Condition: Improved Departure-Patient Inst. Decision time for Depature: 08:40 Referrals: ALEXANDRA ZAMORA MD (PCP/Family) Primary Care Physician Patient Instructions: COPD Including Emphysema (DC) Add. Discharge Instructions: Please ensure patient's oxygen supply is flowing freely. Be liberal about administering nebulizer treatments for shortness of air. Please have patient follow up with Dr. Zamora regarding left-sided weakness that is worsening. She may need physical therapy. All discharge instructions reviewed with patient and/or family. Voiced understanding. Copy Copies To 1: ALEXANDRA ZAMORA MD, JOSHUA T MD Sep 20, 2016 06:32 BRAULIO [id number] Interpreted by: LALIT CAREY Departure Impression Impression: Primary Impression: Altered mental status Qualified Code: R41.82 - Altered mental status, unspecified Additional Impressions: Hypoxia COPD exacerbation Generalized weakness Disposition: 01 HOME, SELF-CARE Condition: Improved Departure-Patient Inst. Decision time for Depature: 08:40 Referrals: ALEXANDRA ZAMORA MD (PCP/Family) Primary Care Physician Patient Instructions: COPD Including Emphysema (DC) Add. Discharge Instructions: Please ensure patient's oxygen supply is flowing freely. Be liberal about administering nebulizer treatments for shortness of air. Please have patient follow up with Dr. Zamora regarding left-sided weakness that is worsening. She may need physical therapy. All discharge instructions reviewed with patient and/or family. Voiced understanding. REG HUSAIN MD Sep 20, 2016 06:32
[2016-09-20 06:38] LABS: ALANINE AMINOTRANSFERASE 32 U/L (0-55); ALBUMIN 3.2 G/DL (3.2-4.5); ANION GAP 9 MMOL/L (5-14); ASPARTATE AMINO TRANSFERASE 21 U/L (5-34); BILIRUBIN,TOTAL 0.3 MG/DL (0.1-1.0); BLOOD UREA NITROGEN 25 MG/DL (7-18); BUN/CREATININE RATIO 25; CALCIUM 8.4 MG/DL (8.5-10.1); CARBON DIOXIDE 25 MMOL/L (21-32); CHLORIDE 107 MMOL/L (98-107); GFR ESTIMATED 53; GLUCOSE 94 MG/DL (70-105); MAGNESIUM 2.1 MG/DL (1.8-2.4); POTASSIUM 4.5 MMOL/L (3.6-5.0); SODIUM 141 MMOL/L (135-145); TOTAL PROTEIN 6.4 G/DL (6.4-8.2); hs C REACTIVE PROTEIN 1.96 MG/DL (0.00-0.50)
[2016-09-20] MEDS ORDERED: LISI-556 PO (06:39)
[2016-09-20] MEDS ORDERED: FENT1PAT8 (06:39)
[2016-09-20] MEDS ORDERED: ALPR0.254 PO (06:39)
[2016-09-20] MEDS ORDERED: FENT1PAT6 (06:39)
[2016-09-20] MEDS ORDERED: ONDA4TAB11 PO (06:39)
[2016-09-20] MEDS ORDERED: POTA10TA10 PO (06:39)
[2016-09-20] MEDS ORDERED: LISI2.5T (06:39)
[2016-09-20] MEDS ORDERED: AMLO5TAB2 PO (06:39)
[2016-09-20] MEDS ORDERED: DULO60CA58 PO (06:39)
[2016-09-20] MEDS ORDERED: RT-ALBUINH INH (06:39)
[2016-09-20] MEDS ORDERED: DONE10TA41 PO (06:39)
[2016-09-20] MEDS ORDERED: ALBU2.5V4 (06:39)
[2016-09-20] MEDS ORDERED: SENN-140 PO (06:39)
[2016-09-20] MEDS ORDERED: HYDR-3812 PO (06:39)
[2016-09-20] MEDS ORDERED: ROPI3TAB2 PO (06:39)
[2016-09-20] MEDS ORDERED: IBUP-1773 PO (06:39)
[2016-09-20] MEDS ORDERED: MECL-106 PO (06:39)
[2016-09-20] MEDS ORDERED: RANI150T11 PO (06:39)
[2016-09-20] MEDS ORDERED: GABA-490 PO (06:39)
[2016-09-20] MEDS ORDERED: ASPI-808 PO (06:39)
[2016-09-20 06:43] LABS: TROPONIN I < 0.30 NG/ML (<0.30)
[2016-09-20 07:29] VITALS: BP 105/67
--- NOTE | 2016-09-20 07:38 | Diagnostic Imaging Report ---
INDICATION: Shortness of breath. FINDINGS: No focal consolidation is apparent. Lung evaluation limited by suboptimal penetration. No effusion or pneumothorax. Heart size within the upper limits of normal. No convincing pathological distention of the vascularity. Left upper extremity vascular stents noted. IMPRESSION: No acute finding identified. Dictated by: Dictated on workstation # [id number]
[2016-09-20] MEDS ORDERED: NS IV 500 ML 500 ML IV ONE (07:49)
[2016-09-20 08:02] LABS: BILIRUBIN,URINE NEGATIVE (NEGATIVE); KETONES,URINE NEGATIVE (NEGATIVE); LEUKOCYTE ESTERASE ,URINE 1+ (NEGATIVE); NITRITE,URINE NEGATIVE (NEGATIVE); PH,URINE 5 (5-9); PROTEIN,URINE 1+ (NEGATIVE); UROBILINOGEN,URINE NORMAL (NORMAL)
--- NOTE | 2016-09-20 08:15 | Diagnostic Imaging Report ---
INDICATION: Back pain. Exam compared with CT date 09/10/2016. FINDINGS: Calcified abdominal aortic aneurysm partly visualized at this exam. Where seen on both studies not obviously changed although its evaluation very limited on both studies. The bowel gas pattern unremarkable. No pathological fecal loading. No bowel obstruction. Postsurgical changes chronic. IMPRESSION: Atherosclerotic aortic aneurysm. Nonobstructive bowel gas pattern. Dictated by: Dictated on workstation # [id number]
[2016-09-20 08:16] LABS: SQUAMOUS EPITHELIAL CELL,UR 25-50 /HPF; WBC,URINE RARE /HPF
[2016-09-20 10:10] VITALS: BP 119/58
== END 2016-09-20 10:20 | disposition home or self-care (01) ==
LOC: EDUNIT# 05:58 → ER 06:00
DX: R41.82 Altered mental status, unspecified (principal); R09.02 Hypoxemia; J44.1 Chronic obstructive pulmonary disease with (acute) exacerbation; R53.1 Weakness; I10 Essential (primary) hypertension; I70.0 Atherosclerosis of aorta; I71.4 Abdominal aortic aneurysm, without rupture; G30.9 Alzheimer's disease, unspecified; F02.80 Dementia in other diseases classified elsewhere, unspecified severity, without behavioral disturbance, psychotic disturbance, mood disturbance, and anxiety; Z79.82 Long term (current) use of aspirin; Z79.899 Other long term (current) drug therapy; Z99.81 Dependence on supplemental oxygen
CPT/HCPCS: 36415; 51701; 71010; 74000; 80053; 81000; 83605; 83735; 83880; 84439; 84443; 84484; 85025; 85610; 85730; 86141; 87040; 87804; 94640; 96360

== ENCOUNTER → 2017-04-13 | Outpatient (CLI) | payer MEDICARE, MEDICAID ==
[~2017-04-13] VITALS: Ht 167.6 cm
[~2017-04-13] MED LIST changes: +CATHETER FLUSH 10 ML SYR IV PRN; +REGADENOSON 0.4 MG/5 ML SYR (LEXISCAN) IV ONE
[2017-04-13 13:52] VITALS: BP 116/86
[2017-04-13 14:02] VITALS: BP 119/88
--- NOTE | 2017-04-14 09:42 | STRESS TEST ---
DATE OF SERVICE: 04/13/2017 LEXISCAN MYOVIEW STRESS TEST REPORT REFERRING PHYSICIAN: Jonathan Segal MD Baseline heart rate is 92, baseline blood pressure 116/86. Baseline EKG is sinus rhythm with no ischemic changes. In summary, the patient was injected with 10.4 mCi of technetium-99 Myoview and the resting images were obtained. Then, the patient received 0.4 mg of Lexiscan followed by 28.7 mCi of technetium-99 Myoview. Throughout the test, there were no EKG changes. The resting and stressed images were reviewed and compared in the short axis, horizontal long axis, and vertical long axis views. Review of the images showed good radiotracer uptake with no significant ischemia or infarction on SPECT images. SSS is 2, SDS 2, TID value 0.93. On the gated images, the left ventricle appeared to be small with normal contractility. Calculated ejection fraction 71%. CONCLUSION: 1. The patient tolerated Lexiscan well. 2. No ischemia or infarction on SPECT images. 3. Small left ventricle with normal contractility. Calculated ejection fraction 71%. Job ID: [id number] DocumentID: [id number] Dictated Date: 04/13/2017 15:58:44 Chief Fundraising Officer Date: 04/13/2017 17:10:31 Dictated By: JASMIN DALE MD
== END ==
LOC: CARD 12:28
PROVIDERS: ATTEND Internal Medicine Cardiovascular Disease
DX: I25.10 Atherosclerotic heart disease of native coronary artery without angina pectoris (principal); J44.9 Chronic obstructive pulmonary disease, unspecified; I10 Essential (primary) hypertension; E78.2 Mixed hyperlipidemia; R06.02 Shortness of breath; Z72.0 Tobacco use
CPT/HCPCS: 78452; 93017

== ENCOUNTER → 2017-04-22 | Outpatient (CLI) | payer MEDICARE, MEDICAID ==
[~2017-04-22] MED LIST changes: -CATHETER FLUSH 10 ML SYR IV PRN; -REGADENOSON 0.4 MG/5 ML SYR (LEXISCAN) IV ONE
== END ==
LOC: CARD 11:11
PROVIDERS: ATTEND Internal Medicine Cardiovascular Disease
DX: I25.10 Atherosclerotic heart disease of native coronary artery without angina pectoris (principal); J44.9 Chronic obstructive pulmonary disease, unspecified; I10 Essential (primary) hypertension; E78.2 Mixed hyperlipidemia; R06.02 Shortness of breath; Z72.0 Tobacco use
CPT/HCPCS: 93306

== ENCOUNTER → 2017-05-09 | Outpatient (CLI) | payer MEDICARE, MEDICAID ==
--- NOTE | 2017-05-09 09:39 | Diagnostic Imaging Report ---
CLINICAL INDICATION: Patient with abdominal aortic aneurysm seen on prior CT. EXAM: Ultrasound of the abdominal aorta. COMPARISON: CT scan of the abdomen and pelvis performed without contrast dated 05/11/2011. FINDINGS: There is a proximal abdominal aortic aneurysm which measures 3.5 cm x 4.0 cm. This aneurysm has increased in size compared to the prior CT scan which is remeasured at 2.9 cm. There is a distal abdominal aortic aneurysm which measures 4.5 cm x 4.9 cm. Compared to the prior CT dated 05/11/2011, the distal abdominal aortic aneurysm has increased in size and previously measured 3.8 cm. The mid abdominal aorta is within normal limits measuring 2.3 cm x 2.4 cm. The right and left common iliac arteries are obscured and cannot be evaluated. IMPRESSION: 1: Compared to the prior CT scan of the abdomen and pelvis dated 05/11/2011, there is interval increased size of the infrarenal distal abdominal aortic aneurysm which now measures 4.9 cm in greatest dimension. 2: There is a 4.0 cm proximal abdominal aortic aneurysm which has increased in size compared to the prior CT scan. Dictated by: Dictated on workstation # [id number]
== END ==
LOC: RAD 08:26
PROVIDERS: ATTEND Internal Medicine Cardiovascular Disease
DX: I71.4 Abdominal aortic aneurysm, without rupture (principal); I73.9 Peripheral vascular disease, unspecified; I25.10 Atherosclerotic heart disease of native coronary artery without angina pectoris; I10 Essential (primary) hypertension; E78.2 Mixed hyperlipidemia
CPT/HCPCS: 76775

== ENCOUNTER → 2018-08-02 | Outpatient (CLI) | payer MEDICARE, MEDICAID ==
[~2018-08-02] MED LIST changes: +ACHD5005 PO; -AMLO5TAB2 PO; +AMLO5TAB7 PO; +CATHETER FLUSH 10 ML SYR IV PRN; -HYDR-3812 PO; +IOHEXOL 350 MG/ML 100 ML (OMNIPAQUE 350) VIAL IV ONE; +NS 100 ML (IVPB) BAG IV ONE; +RECEIVED CONTRAST (Hold Metformin) IV SCH; -ROPI3TAB2 PO; +ROPI3TAB4 PO; -SENN-140 PO; +SENN-141 PO
[2018-08-02 08:30] LABS: BUN/CREATININE RATIO 19; CALCIUM 9.2 MG/DL (8.5-10.1); CARBON DIOXIDE 26 MMOL/L (21-32); CHLORIDE 103 MMOL/L (98-107); GFR ESTIMATED > 60; GLUCOSE 103 MG/DL (70-105); POTASSIUM 4.1 MMOL/L (3.6-5.0); SODIUM 141 MMOL/L (135-145)
--- NOTE | 2018-08-02 11:02 | Diagnostic Imaging Report ---
INDICATION: Abdominal aortic aneurysm. TECHNIQUE: Axial imaging through the abdomen and pelvis was performed after the administration of intravenous contrast and utilizing the CT angiography protocol. Multiplanar, 3D, and MIP reformations were also performed. COMPARISON: Correlation is made with prior CT of the abdomen and pelvis from 05/11/2011. FINDINGS: Imaging through the lung bases shows some minimal patchy infiltrate or atelectasis in the right lower lobe. No discrete liver mass is seen. There is mild intrahepatic and extrahepatic biliary ductal dilatation. This may be secondary to post cholecystectomy. Pancreas and spleen are unremarkable. No adrenal mass is identified. The kidneys are unremarkable. Infrarenal abdominal aortic aneurysm is again noted. This measures approximately 5.4 cm AP x 5.6 cm transverse x approximately 10.7 cm cephalocaudal. This has increased in size since prior ultrasound from one year earlier where the largest measurement was approximately 4.5 x 4.9 cm in the distal aorta. There is a large amount of mural thrombus throughout the aneurysm measuring to a thickness of approximately 1.8 cm. Aneurysm terminates just above the bifurcation. Iliacs do not appear to be aneurysmal. Small and large bowel loops are normal in caliber. There is no ascites. No periaortic fluid collection is seen to suggest leakage or rupture. The bladder is unremarkable. IMPRESSION: 1. Minimal patchy right lower lobe infiltrate or atelectasis. 2. Infrarenal abdominal aortic aneurysm without evidence of leakage or rupture. This has increased in size when compared with prior abdominal ultrasound from 05/09/2017. Dictated by: Dictated on workstation # [id number]
== END ==
LOC: RAD 08:04
PROVIDERS: ATTEND Thoracic Surgery (Cardiothoracic Vascular Surgery)
DX: I71.4 Abdominal aortic aneurysm, without rupture (principal)
CPT/HCPCS: 36415; 74174; 80048

== ENCOUNTER 2018-10-02 20:00 | Inpatient (IN) | payer MEDICARE, MEDICAID ==
[~2018-10-02] VITALS: Ht 167.6 cm; Wt 65.8 kg
[~2018-10-02 20:00] MED LIST changes: -AMLO5TAB7 PO; +AMLO5TAB9 PO; -CATHETER FLUSH 10 ML SYR IV PRN; -FENT1PAT6; +FENT1PAT6 TD; -FENT1PAT8; +FENT1PAT8 TD; -IOHEXOL 350 MG/ML 100 ML (OMNIPAQUE 350) VIAL IV ONE; -NS 100 ML (IVPB) BAG IV ONE; -RECEIVED CONTRAST (Hold Metformin) IV SCH
--- NOTE | 2018-10-02 20:05 | NUR ---
2 FENTANYL PATCHES REMOVED FROM BACK AT THIS TIME AND DISPOSED OF IN SHARPS CONTAINER.
[2018-10-02] MEDS ORDERED: RT-ALBUTEROL SULF 2.5 MG/3 ML PRE-MIX VIAL INH STA (20:07)
[2018-10-02] MEDS ORDERED: NS IV 1000 ML 1,000 ML IV ONE ×2 (20:07→21:26)
[2018-10-02] MEDS ORDERED: NS IV 1000 ML 1,000 ML IV SCH ×2 (20:07→21:26)
[2018-10-02] MEDS ORDERED: NS IV 1000 ML 1,000 ML ONE (20:09)
[2018-10-02] MEDS ORDERED: CEFEPIME INJECTION 1,000 MG in WATER (STERILE) FOR INJECTION 10 ML IV ONE (20:15)
[2018-10-02] MEDS ORDERED: RT-ALBUTEROL/IPRATROPIUM 3 ML (DUONEB) VIAL INH ONE (20:15)
[2018-10-02 20:20] LABS: BASOPHILS % (AUTO) 0 % (0-10); EOSINOPHILS % (AUTO) 0 % (0-10); HEMATOCRIT 41 % (35-52); HEMOGLOBIN 12.9 G/DL (11.5-16.0); LYMPHOCYTES # (AUTO) 2.2 X 10^3 (1.0-4.0); LYMPHOCYTES % (AUTO) 10 % (12-44); MEAN CORPUSCULAR HEMOGLOBIN 30 PG (25-34); MEAN CORPUSCULAR HGB CONC 32 G/DL (32-36); MEAN CORPUSCULAR VOLUME 94 FL (80-99); MEAN PLATELET VOLUME 9.4 FL (7.4-10.4); MONOCYTES # (AUTO) 1.6 X 10^3 (0.0-1.0); MONOCYTES % (AUTO) 7 % (0-12); NEUTROPHILS # (AUTO) 18.1 X 10^3 (1.8-7.8); NEUTROPHILS % (AUTO) 83 % (42-75); PLATELET COUNT 387 10^3/uL (130-400); RED CELL DISTRIBUTION WIDTH 14.1 % (10.0-14.5); WHITE BLOOD COUNT 21.8 10^3/uL (4.3-11.0)
--- NOTE | 2018-10-02 20:21 | ED General ---
General Chief Complaint: Respiratory Problems Stated Complaint: SOA Source of Information: Patient, EMS, Half-Way Records Exam Limitations: No Limitations History of Present Illness Date Seen by Provider: Oct 02, 2018 Time Seen by Provider: 19:49 Initial Comments The patient presents to ER by EMS from the [facility] with chief complaint of decreased activity, shortness of breath and low blood pressure. She was given a breathing treatment for her wheezing by staff at the [facility] and again a DuoNeb by EMS on route. She says helped some. She is not a very good historian and has advanced dementia. She is a DO NOT RESUSCITATE. She usually does not smoke but today she was not feeling well and did not go out and staff thought that was on. He also noted her to have a fever but did not give her Tylenol or Motrin. No mention of a productive cough. She does have COPD. Recently she was treated last month for bronchitis. No mention of recent steroids. Allergies and Home Medications Allergies Coded Allergies: morphine (Verified Allergy, Severe, BISI, 09/10/16) Home Medications Albuterol Sulfate 18 Gm Hfa.aer.ad, 1 PUFF INH BID, (Reported) Albuterol Sulfate 2.5 Mg/3 Ml Vial.neb, for SHORTNESS OF BREATH, (Reported) Alprazolam 0.25 Mg Tablet, 1 TAB PO TID PRN for anxiety, (Reported) Amlodipine Besylate 5 Mg Tablet, 1 TAB PO DAILY, (Reported) Aspirin 325 Mg Tablet, 325 MG PO DAILY, (Reported) Donepezil HCl 10 Mg Tablet, 10 MG PO DAILY, (Reported) Duloxetine HCl 60 Mg Capsule.dr, 60 MG PO jeremias, (Reported) Gabapentin 400 Mg Capsule, 1 TAB PO TID, (Reported) Hydrocodone Bit/Acetaminophen 1 Each Tablet, 1 TAB PO Q4H PRN for PAIN, ( Reported) Ibuprofen 600 Mg Tablet, 1 TAB PO QID PRN for PAIN, (Reported) Meclizine HCl 25 Mg Tablet, 1 TAB PO TID, (Reported) Ondansetron 4 Mg Tab.rapdis, 1 TAB PO for nausea, (Reported) Potassium Chloride 10 Meq Tablet.er, 1 TAB PO DAILY, (Reported) Ranitidine HCl 150 Mg Tablet, 1 TAB PO DAILY, (Reported) Ropinirole HCl 3 Mg Tablet, 1 TAB PO TID, (Reported) Sennosides 8.6 Mg Tablet, 8.6 MG PO sera, (Reported) Patient Home Medication List Home Medication List Reviewed: Yes Review of Systems Review of Systems Constitutional: see HPI (Review of systems per staff as the patient answers very few questions other than her name and that she is not in pain.); No chills ; fever Respiratory: cough; No phlegm; short of breath, wheezing Cardiovascular: No chest pain, No Hx of Intervention Gastrointestinal: No abdominal pain, No nausea Past Vsyqkpo-Mkrnxe-Wmqskw Hx Patient Social History Alcohol Use: Denies Use Recreational Drug Use: No Smoking Status: Current Everyday Smoker Type Used: Cigarettes 2nd Hand Smoke Exposure: No Recent Foreign Travel: No Contact w/Someone Who Travel: No Recent Hopitalizations: No Seasonal Allergies Seasonal Allergies: No Past Medical History Gallbladder, Orthopedic, Vascular Surgery COPD Aneurysm, Hypertension, Peripheral Vascular Dementia, Headaches /Migraines, Neuropathy, Stroke Chronic Constipation Sleep Difficulties, Anxiety, Depression Physical Exam-Suspected Sepsis Physical Exam Vital Signs Vital Signs - First Documented 10/02/18 10/02/18 20:00 21:51 Temp 98.8 Pulse 114 Resp 19 B/P (MAP) 123/ Pulse Ox 92 O2 Delivery Nasal Cannula O2 Flow Rate 4.00 Capillary Refill : Height, Weight, BMI Height: 5'6.00" Weight: 0lbs. 0.0oz. 0.016111rz; 0.0 BMI Method:Estimated General Appearance: No Apparent Distress, Chronically ill Eyes: Bilateral Eye Normal Inspection, Bilateral Eye PERRL, Bilateral Eye EOMI HEENT: PERRL/EOMI, TMs Normal; No Moist Mucous Membranes; Other (oropharynx is very dry) Neck: Full Range of Motion, Normal Inspection, Non Tender, Supple Respiratory: Chest Non Tender, No Accessory Muscle Use, No Respiratory Distress , Expiration (Prolonged), Wheezing (Bilateral) Cardiovascular: No Regular Rate, Rhythm; No Edema, Normal Peripheral Pulses Gastrointestinal: Normal Bowel Sounds, Non Tender, Soft Extremity: Normal Capillary Refill, Normal Inspection, No Calf Tenderness, No Pedal Edema Neurologic/Psychiatric: Alert, No Motor/Sensory Deficits; No Normal Mood/ 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 (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); 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 Norm as Tested, Other (Oriented to person but not time place or situation) Skin: normal color, warm/dry Focused Exam Lactate Level 10/02/18 20:06: Lactic Acid Level 2.87*H Lactic Acid Level Progress/Results/Core Measures Suspected Sepsis SIRS Temperature: Pulse: Respiratory Rate: Laboratory Tests 10/02/18 20:06: White Blood Count 21.8H Blood Pressure / Mean: 10/02/18 20:06: Lactic Acid Level 2.87*H Laboratory Tests 10/02/18 20:06: Creatinine 1.18, INR Comment 1.1, Platelet Count 387, Total Bilirubin 0.4 Results/Orders Lab Results Laboratory Tests Test 10/02/18 20:06 10/02/18 20:47 10/02/18 20:53 Range/Units White Blood Count 21.8 H 4.3-11.0 10^3/uL Red Blood Count 4.37 4.35-5.85 10^6/uL Hemoglobin 12.9 11.5-16.0 G/DL Hematocrit 41 35-52 % Mean Corpuscular Volume 94 80-99 FL Mean Corpuscular Hemoglobin 30 25-34 PG Mean Corpuscular Hemoglobin Concent 32 32-36 G/DL Red Cell Distribution Width 14.1 10.0-14.5 % Platelet Count 387 130-400 10^3/uL Mean Platelet Volume 9.4 7.4-10.4 FL Neutrophils (%) (Auto) 83 H 42-75 % Lymphocytes (%) (Auto) 10 L 12-44 % Monocytes (%) (Auto) 7 0-12 % Eosinophils (%) (Auto) 0 0-10 % Basophils (%) (Auto) 0 0-10 % Neutrophils # (Auto) 18.1 H 1.8-7.8 X 10^3 Lymphocytes # (Auto) 2.2 1.0-4.0 X 10^3 Monocytes # (Auto) 1.6 H 0.0-1.0 X 10^3 Eosinophils # (Auto) 0.0 0.0-0.3 10^3/uL Basophils # (Auto) 0.0 0.0-0.1 10^3/uL Neutrophils % (Manual) 65 % Lymphocytes % (Manual) 11 % Monocytes % (Manual) 7 % Eosinophils % (Manual) 0 % Basophils % (Manual) 0 % Band Neutrophils 10 % Reactive Lymphocytes 7 % Toxic Granulation 1+ Anisocytosis SLIGHT Prothrombin Time 14.1 12.2-14.7 SEC INR Comment 1.1 0.8-1.4 Activated Partial Thromboplast Time 30 24-35 SEC Sodium Level 138 135-145 MMOL/L Potassium Level 4.4 3.6-5.0 MMOL/L Chloride Level 102 98-107 MMOL/L Carbon Dioxide Level 25 21-32 MMOL/L Anion Gap 11 5-14 MMOL/L Blood Urea Nitrogen 21 H 7-18 MG/DL Creatinine 1.18 0.60-1.30 MG/DL Estimat Glomerular Filtration Rate 44 BUN/Creatinine Ratio 18 Glucose Level 172 H 70-105 MG/DL Lactic Acid Level 2.87 *H 0.50-2.00 MMOL/L Calcium Level 8.8 8.5-10.1 MG/DL Corrected Calcium 9.4 8.5-10.1 MG/DL Magnesium Level 2.3 1.8-2.4 MG/DL Total Bilirubin 0.4 0.1-1.0 MG/DL Aspartate Amino Transf (AST/SGOT) 21 5-34 U/L Alanine Aminotransferase (ALT/SGPT) 15 0-55 U/L Alkaline Phosphatase 106 40-136 U/L Total Protein 7.4 6.4-8.2 GM/DL Albumin 3.3 3.2-4.5 GM/DL Blood Gas Puncture Site R RAD Blood Gas Patient Temperature 98.8 Arterial Blood pH 7.32 *L 7.37-7.43 Arterial Blood Partial Pressure CO2 43 35-45 MMHG Arterial Blood Partial Pressure O2 83 79-93 MMHG Arterial Blood HCO3 22 L 23-27 MMOL/L Arterial Blood Total CO2 23.2 21.0-31.0 MMOL/L Arterial Blood Oxygen Saturation 96 94-100 % Arterial Blood Base Excess -3.2 L -2.5-2.5 MMOL/L Taran Test YES-POS Blood Gas Ventilator Setting NO Blood Gas Inspired Oxygen 4L Urine Color YELLOW Urine Clarity VERY CLOUDY H Urine pH 5 5-9 Urine Specific [place] 1.015 L 1.016-1.022 Urine Protein 2+ H NEGATIVE Urine Glucose (UA) NEGATIVE NEGATIVE Urine Ketones NEGATIVE NEGATIVE Urine Nitrite NEGATIVE NEGATIVE Urine Bilirubin NEGATIVE NEGATIVE Urine Urobilinogen NORMAL NORMAL MG/DL Urine Leukocyte Esterase 3+ H NEGATIVE Urine RBC (Auto) 1+ H NEGATIVE Urine RBC RARE /HPF Urine WBC 50-100 H /HPF Urine Squamous Epithelial Cells 0-2 /HPF Urine Crystals NONE /LPF Urine Bacteria MODERATE H /HPF Urine Casts NONE /LPF Urine Mucus MODERATE H /LPF Urine Culture Indicated CULTURE PENDING Micro Results Microbiology 10/02/18 Influenza Types A,B Antigen (GUY) - Final, Complete My Orders Orders - LILI GUY Cbc With Automated Diff (10/02/18 20:07) Comprehensive Metabolic Panel (10/02/18 20:07) Blood Culture (10/02/18 20:07) Sputum Culture (10/02/18 20:07) Urinalysis (10/02/18 20:07) Urine Culture (10/02/18 20:07) Protime With Inr (10/02/18 20:07) Partial Thromboplastin Time (10/02/18 20:07) Chest 1 View, Ap/Pa Only (10/02/18 20:07) Saline Lock/Iv-Start (10/02/18 20:07) Saline Lock/Iv-Start (10/02/18 20:07) Ekg Tracing (10/02/18 20:07) Vital Signs Adult Sepsis Patie Q15M (10/02/18 20:07) O2 (10/02/18 20:07) Remove Rings In Anticipation O (10/02/18 20:07) Lactic Acid Analyzer (10/02/18 20:07) Influenza A And B Antigens (10/02/18 20:07) Ns Iv 1000 Ml (Sodium Chloride 0.9%) (10/02/18 20:07) Cefepime Injection (Maxipime Injection) (10/02/18 20:15) Saline Lock/Iv-Start (10/02/18 20:07) Ns Iv 1000 Ml (Sodium Chloride 0.9%) (10/02/18 20:07) Albuterol Pre-Mix Nebs (Rt) (Proventil (10/02/18 20:07) Albuterol/Ipra Inhalation Soln (Duoneb I (10/02/18 20:15) Arterial Blood Gas (10/02/18 20:07) Magnesium (10/02/18 20:07) Svn Small Volume Nebulizer (10/02/18 20:07) Straight Cath For Spec.-Adult (10/02/18 20:07) Ns Iv 1000 Ml (Sodium Chloride 0.9%) (10/02/18 20:09) Manual Differential (10/02/18 20:06) Norepinephrine (Levophed) (10/02/18 21:15) Ns Iv 1000 Ml (Sodium Chloride 0.9%) (10/02/18 21:26) Ns Iv 1000 Ml (Sodium Chloride 0.9%) (10/02/18 21:26) Lorazepam Tablet (Ativan Tablet) (10/02/18 21:45) Comfort Care (Order) (10/02/18 21:35) Medications Given in ED Current Medications Medications Dose Ordered Sig/Kelsey Route Start Time Stop Time Status Last Admin Dose Admin Cefepime HCl 1000 mg/Sterile Water 10 ml @ 200 mls/hr ONCE ONCE IV 10/02/18 20:15 10/02/18 20:17 DC 10/02/18 20:29 200 MLS/HR Lorazepam 0.5 mg ONCE ONCE PO 10/02/18 21:45 10/02/18 21:46 DC 10/02/18 21:45 0.5 MG Sodium Chloride 1,000 ml @ 0 mls/hr Q0M ONCE IV 10/02/18 20:07 10/02/18 20:14 DC 10/02/18 21:16 999 MLS/HR Vital Signs/I&O 10/02/18 10/02/18 10/02/18 10/03/18 20:00 21:51 22:25 00:00 Temp 98.8 98.8 98.8 Pulse 114 100 102 Resp 19 19 20 B/P (MAP) 123/ 79/50 (60) 112/58 Pulse Ox 92 92 92 O2 Delivery Nasal Cannula Nasal Cannula Nasal Cannula O2 Flow Rate 4.00 4.00 4.00 4.00 10/03/18 00:00 O2 Delivery Nasal Cannula O2 Flow Rate 3.00 10/03/18 00:00 Intake Total 1210 ml Balance 1210 ml Capillary Refill : Progress Note #1: Time: 20:23 Progress Note Despite 2 [id number] DuoNeb the patient is still very wheezy and has diminished breath sounds so we'll give her an hour-long breathing treatment get a chest x-ray and obtain some labs looking for signs of pneumonia. We'll get urine from her as well. We removed two fentanyl patches off her left shoulder blade. She appears to be experiencing some depressive delirium probably secondary to either COPD exacerbation, bronchitis pneumonia or other infection. Her blood pressures quite soft with a systolic in the 90s so we will give her 30 mL/kg bolus of fluids. She does appear quite dry and so she should have some good response to this. She's not having a fever at this moment but we will get an influenza swab and cover her with cefepime which would cover for urinary or respiratory. Because of her irregular rhythm we'll get an EKG looking for atrial fibrillation. No mention of A. fib and her history nor is there a blood thinner ordered. ABG and UA Echocardiogram [address] Woods demonstrates a cavity size is normal as well as wall thickness being normal. EF of 65-70 %. Progress Note #2: Time: 21:08 Progress Note She has better than half or fluids in and we reclined her as close to Trendelenburg as we can and still maintain her breathing but her blood pressures continued to fall. We are going to start peripheral Levophed and get a central line initiated. Systolic is 68. Progress Note #3: Time: 21:28 Progress Note This provider had a dewey discussion with the daughter, Rad who is the point of contact for the patient and help with her decision maker. The daughter notes that the patient over the past 2 weeks has made several statements that she is ready and does not want to stay in the ICU, be intubated or be coded. She has discussed that she recognizes that she is dying and is ready to go. We will respect the patient's wishes to be allow natural . We will not do a central line and make her comfort care only. We have discussed the case with the daughter who is talking to the other daughter by phone. They would like to elect hospice care. We have talked Juan on hospice on their behalf; Christina GIL. She would not be able to get the appropriate narcotics to the [facility] so were going to put the patient in the hospital for comfort cares only and hospice will come and meet with the family in the morning. ECG Initial ECG Impression Date: Oct 02, 2018 Initial ECG Impression Time: 20:27 Initial ECG Rate: 118 Initial ECG Rhythm: S.Tach Initial ECG Intervals: Normal Initial ECG Impression: Normal Comment sinus tachycardia with no significant ST elevation or depression. Diagnostic Imaging Diagonstic Imaging: Xray Plain Films/CT/US/NM/MRI: chest (1v) Comments [facility] [place], [place] NAME: JELLY BRAVO [facility] REC#: [id number] PT STATUS: REG ER : 1935 PHYSICIAN: LILI GUY MD ADMIT DATE: 10/02/18/ER Draft Date of Exam:10/02/18 CHEST 1 VIEW, AP/PA ONLY INDICATION: Shortness of air. COMPARISON: 09/20/2016 FINDINGS: Single frontal radiographic view of the chest was obtained and demonstrates patchy infiltrates within the right base. Left lung is relatively clear. No large effusion or pneumothorax is seen on either side. There is suggestion of micronodular density within the right apex measuring 8 mm. Cardiac silhouette and pulmonary vasculature are stable. There is calcified aortic atherosclerosis. Bony structures show no gross acute abnormalities. IMPRESSION: 1. New infiltrate within the right base. Followup to resolution is recommended. 2. Possible micronodular density within the right apex. If this persists on followup imaging, correlation with CT chest is advised. Dictated on workstation # [id number] Dict: 10/02/182040 Trans: 10/02/182044 [facility] [id number] Interpreted by: MIKY BUTLER MD Electronically signed by: Reviewed: Reviewed by Me Departure Communication (Admissions) Time/Spoke to Admitting Phy: 21:15 Discussed the case with Dr. Davila and he agrees to admit the patient for comfort care only. Impression Primary Impression: Right lower lobe pneumonia Qualified Codes: J18.1 - Lobar pneumonia, unspecified organism Additional Impressions: Septic shock Hypoxia Need for comfort care Disposition: ADMITTED INPATIENT Condition: Stable Admissions Decision to Admit Reason: Admit from ER (General) Decision to Admit/Date: Oct 02, 2018 Time/Decision to Admit Time: 20:57 Departure-Patient Inst. Referrals: ALEXANDRA ZAMORA MD (PCP/Family) Primary Care Physician LILI GUY Oct 02, 2018 20:21
[2018-10-02 20:32] LABS: ALBUMIN 3.3 GM/DL (3.2-4.5); BILIRUBIN,TOTAL 0.4 MG/DL (0.1-1.0); CALCIUM 8.8 MG/DL (8.5-10.1); CREATININE SERUM 1.18 MG/DL (0.60-1.30); MAGNESIUM 2.3 MG/DL (1.8-2.4); POTASSIUM 4.4 MMOL/L (3.6-5.0); TOTAL PROTEIN 7.4 GM/DL (6.4-8.2)
[2018-10-02 20:33] LABS: INR 1.1 (0.8-1.4); PROTHROMBIN TIME PATIENT 14.1 SEC (12.2-14.7)
[2018-10-02 20:37] LABS: ANISOCYTOSIS SLIGHT; BAND NEUTROPHILS 10 %; BASOPHILS % (MANUAL) 0 %; EOSINOPHILS % (MANUAL) 0 %; LYMPHOCYTES % (MANUAL) 11 %; MONOCYTES % (MANUAL) 7 %; NEUTROPHILS % (MANUAL) 65 %; REACTIVE LYMPHOCYTES 7 %; TOXIC GRANULATION/VACUOLAZATIO 1+
--- NOTE | 2018-10-02 20:45 | Diagnostic Imaging Report ---
INDICATION: Shortness of air. COMPARISON: 09/20/2016 FINDINGS: Single frontal radiographic view of the chest was obtained and demonstrates patchy infiltrates within the right base. Left lung is relatively clear. No large effusion or pneumothorax is seen on either side. There is suggestion of micronodular density within the right apex measuring 8 mm. Cardiac silhouette and pulmonary vasculature are stable. There is calcified aortic atherosclerosis. Bony structures show no gross acute abnormalities. IMPRESSION: 1. New infiltrate within the right base. Followup to resolution is recommended. 2. Possible micronodular density within the right apex. If this persists on followup imaging, correlation with CT chest is advised. Dictated by: Dictated on workstation # [id number]
[2018-10-02 20:56] LABS: ABG BASE EXCESS -3.2 MMOL/L (-2.5-2.5); ABG OXYGEN SATURATION 96 % (94-100); ABG PCO2 43 MMHG (35-45); ABG PO2 83 MMHG (79-93); ABG TCO2 23.2 MMOL/L (21.0-31.0); ALLENS TEST YES-POS; INSPIRED O2 4L; PATIENT TEMP 98.8; VENTILATOR NO
[2018-10-02 20:57] LABS: ABG PH 7.32 (7.37-7.43)
[2018-10-02 21:01] LABS: BILIRUBIN,URINE NEGATIVE (NEGATIVE); CLARITY,URINE VERY CLOUDY; GLUCOSE, URINE (UA) NEGATIVE (NEGATIVE); KETONES,URINE NEGATIVE (NEGATIVE); LEUKOCYTE ESTERASE ,URINE 3+ (NEGATIVE); NITRITE,URINE NEGATIVE (NEGATIVE); PH,URINE 5 (5-9); PROTEIN,URINE 2+ (NEGATIVE); UROBILINOGEN,URINE NORMAL (NORMAL)
[2018-10-02 21:03] LABS: COLOR,URINE YELLOW
[2018-10-02 21:07] LABS: BACTERIA,URINE MODERATE /HPF; RBC,URINE RARE /HPF; SQUAMOUS EPITHELIAL CELL,UR 0-2 /HPF; WBC,URINE 50-100 /HPF
[2018-10-02] MEDS ORDERED: NOREPINEPHRINE 4 MG in NS (IVPB) 250 ML IV SCH (21:15)
[2018-10-02] MEDS ORDERED: LORazepam 0.5 MG (ATIVAN) TABLET PO ONE (21:45)
--- OUTSIDE RECORDS SUMMARY | 2018-10-02 21:56 | XMS REPORT ---
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 Active [id number] ALLERGIES No Information ENCOUNTERS Encounter Location Date Diagnosis [facility] [id number] [place] [phone] Jan, Major neurocognitive disorder F03.90 and Major depressive disorder, recurrent episode with anxious distress F33.9 [facility] [id number] [place] [id number] December, Dental examination Z01.20 and Dental caries K02.9 [facility] [address] [phone] December, Major neurocognitive disorder F03.90 and Major depressive disorder, recurrent episode with anxious distress F33.9 [facility] [id number] [place] [id number] Oct, Dental caries K02.9 [facility] [id number] [place] [id number] Sep, Dental caries K02.9 [facility] [address] [id number] Aug, Dental examination Z01.20 [facility] [id number] [place] [id number] Aug, [facility] [address] [address] Aug, Major neurocognitive disorder F03.90 and Major depressive disorder, recurrent episode with anxious distress F33.9 [facility] [address] [facility] [id number] [id number] Aug, Dental caries K02.9 [facility] [address] [facility] [id number] [id number] Jul, Dental examination Z01.20 [facility] [id number] [address] Apr, Major depressive disorder, recurrent episode with anxious distress F33.9 and Major neurocognitive disorder F03.90 [facility] [id number] [address] Mar, Major depressive disorder, recurrent episode with anxious distress F33.9 and Major neurocognitive disorder F03.90 IMMUNIZATIONS No Known Immunizations SOCIAL HISTORY Never Assessed REASON FOR VISIT f/u Chery Deshpande MA PLAN OF CARE Activity Details Follow Up 3 Months, prn Reason: VITAL SIGNS Weight 136.4 lbs 2018-01-12 Heart Rate 90 bpm 2018-01-12 Respiratory Rate 20 2018-01-12 Blood pressure systolic 130 mmHg 2018-01-12 Blood pressure diastolic 80 mmHg 2018-01-12 MEDICATIONS Medication Instructions Dosage Frequency Start Date End Date Duration Status Bisacodyl 10 MG Rectal Once a day 1 suppository as needed 24h 30 day( s) Active Muscle Rub 10-15 % Active Hydrocodone-Acetaminophen 5-325 MG Orally every 4 hours as needed 1 tablet as needed Active ProAir HFA 108 (90 Base) MCG/ACT Inhalation every 6 hrs 2 puffs as needed 6h Active Aricept 10 MG Orally Once a day 1 tablet at bedtime 24h Active Fentanyl 12 MCG/HR Active Ibuprofen 600 MG Orally 4 times a day 1 tablet with food or milk 6h Active Fentanyl 25 MCG/HR Active Cymbalta 60 MG Orally Once a day every morning 1 capsule Active Albuterol Sulfate 0.63 MG/3ML Inhalation every 6 hrs 3 ml as needed 6h Active Eucerin - Active Norvasc 5 MG Orally Once a day 1 tablet 24h Active Neurontin 400 MG Orally Three times a day 1 capsule 8h Active Melatonin 3 MG Orally at bedtime 1 tablet Aug, Active Aspir-81 81 MG Orally Once a day 1 tablet 24h Active Zestril 5 MG Orally Once a day 1 tablet 24h Active Zofran 4 MG Orally 3 times a day as needed 1 tablet Active Senna 8.6 MG Orally Once a day 1 tablet 24h Active Ketoconazole Active Ranitidine 150mg Oral Once a day 1 tablet 24h Active Acetaminophen 325 MG Orally every 6 hrs 2 tablets as needed 6h Active Requip 3 MG Orally Three times a day 1 tablet 8h Active Cymbalta 30 MG Orally once a day (take with 60mg cap every morning) 1 capsule Mar, Active Milk of Magnesia 7.75 % Orally Four times a day 5 ml as needed 6h Active Meclizine HCl 25 MG Orally twice daily 1 tablet Active RESULTS No Results PROCEDURES Procedure Date Ordered Result Body Site [facility] VISIT ESTABLISHED PATIENT January 12, 2018 INSTRUCTIONS MEDICATIONS ADMINISTERED No Known Medications MEDICAL (GENERAL) HISTORY Type Description Date Medical History Alzheimer's disease Medical History Dementia Medical History COPD Medical History Hypertension Medical History Migraine Medical History Major depressive disorder Medical History anxiety disorder Medical History Anemia Medical History 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
--- OUTSIDE RECORDS SUMMARY | 2018-10-02 21:57 | XMS REPORT ---
Author Author SUSI CRAIG [facility] Address Unknown Care Team Providers Care Small Brake Form Operator Name Role Phone SUSI CRAIG Unavailable PROBLEMS Type Condition ICD9-CM Code [id number] Code Onset Dates Condition Status SNOMED Code Problem Major neurocognitive disorder F03.90 Active 051255725 Problem Major depressive disorder, recurrent episode with anxious distress F33.9 Active 94069875 ALLERGIES Substance Reaction Event Type Date Status Morphine Sulfate anaphylaxis Drug Allergy Oct, Active ENCOUNTERS Encounter Location Date Diagnosis [facility] [address] [address] Jan, Major neurocognitive disorder F03.90 and Major depressive disorder, recurrent episode with anxious distress F33.9 [facility] [id number] [place] [phone] December, Dental examination Z01.20 and Dental caries K02.9 [facility] [address] [address] December, Major neurocognitive disorder F03.90 and Major depressive disorder, recurrent episode with anxious distress F33.9 [facility] [id number] [place] [phone] Oct, Dental caries K02.9 [facility] [id number] [place] [id number] Sep, Dental caries K02.9 [facility] [address] [id number] Aug, Dental examination Z01.20 [facility] [id number] [place] [address] [id number] Aug, [facility] [address] [address] Aug, Major neurocognitive disorder F03.90 and Major depressive disorder, recurrent episode with anxious distress F33.9 [facility] [address] [facility] [id number] [phone] Aug, Dental caries K02.9 [facility] [address] [facility] [id number] [phone] Jul, Dental examination Z01.20 [facility] [address] [id number] Apr, Major depressive disorder, recurrent episode with anxious distress F33.9 and Major neurocognitive disorder F03.90 [facility] [address] [id number] [address] Mar, Major depressive disorder, recurrent episode with anxious distress F33.9 and Major neurocognitive disorder F03.90 IMMUNIZATIONS No Known Immunizations SOCIAL HISTORY Never Assessed REASON FOR VISIT Extraction PLAN OF CARE Activity Details Follow Up prn Reason:pt will call VITAL SIGNS Blood pressure systolic 120 mmHg 2017-10-20 Blood pressure diastolic 68 mmHg 2017-10-20 MEDICATIONS Medication Instructions Dosage Frequency Start Date End Date Duration Status Requip 3 MG Orally Three times a day 1 tablet 8h Active Benadryl 25mg by oral route at bedtime as needed 1 Not-Taking Mucinex 600 MG Orally every 12 hrs 1 tablet as needed 12h Not- Taking Cymbalta 60 MG Orally Once a day every morning 1 capsule Active Aspir-81 81 MG Orally Once a day 1 tablet 24h Active Asper-Flex 10 % Externally Four times a day 1 application to affected area as needed 6h Not-Taking Bisacodyl 10 MG Rectal Once a day 1 suppository as needed 24h 30 day( s) Active Mcdaniel Saline Nasal Gel - Active Aricept 10 MG Orally Once a day 1 tablet at bedtime 24h Not-Taking Zestril 5 MG Orally Once a day 1 tablet 24h Active Eucerin - Active Ranitidine 150mg Oral Once a day 1 tablet 24h Active Neurontin 400 MG Orally Three times a day 1 capsule 8h Active Fentanyl 25 MCG/HR Active Albuterol Sulfate 0.63 MG/3ML Inhalation every 6 hrs 3 ml as needed 6h Not-Taking Fentanyl 12 MCG/HR Active Simethicone 80 MG Orally every 8 hours as needed 1 tablet Not- Taking Potassium 75 MG Orally Once a day 1 tablet 24h 30 day(s) Active ProAir HFA 108 (90 Base) MCG/ACT Inhalation every 6 hrs 2 puffs as needed 6h Active Zofran 4 MG Orally 3 times a day as needed 1 tablet Active Trazodone HCl 50 MG Orally Once a day 1 tablet at bedtime as needed for sleep 24h Aug, 30 day(s) Not-Taking Melatonin 3 MG Orally at bedtime 1 tablet Aug, 30 day(s) Active Meclizine HCl 25 MG Orally twice daily 1 tablet Active Tamiflu Active Milk of Magnesia 7.75 % Orally Four times a day 5 ml as needed 6h Active Tussin 100 MG/5ML Orally every 4 hrs 10 ml as needed 4h Not-Taking Cymbalta 30 MG Orally once a day (take with 60mg cap every morning) 1 capsule Mar, Not-Taking Acetaminophen 325 MG Orally every 6 hrs 2 tablets as needed 6h Not -Taking Muscle Rub 10-15 % Active Tylenol 325 MG Orally every 4 hrs 2 tablets as needed 4h Not- Taking Ketoconazole Active Senna 8.6 MG Orally Once a day 1 tablet 24h Active Silvadene Not-Taking Ibuprofen 600 MG Orally 4 times a day 1 tablet with food or milk 6h Active Hydrocodone-Acetaminophen 5-325 MG Orally every 4 hours as needed 1 tablet as needed Active Norvasc 5 MG Orally Once a day 1 tablet 24h Active RESULTS No Results PROCEDURES Procedure Date Ordered Result Body Site EXTRAC ERUPTED TOOTH/EXPOSED ROOT October 20, 2017 EXTRAC ERUPTED TOOTH/EXPOSED ROOT October 20, 2017 EXTRAC ERUPTED TOOTH/EXPOSED ROOT October 20, 2017 INSTRUCTIONS MEDICATIONS ADMINISTERED No Known Medications MEDICAL [...]
--- OUTSIDE RECORDS SUMMARY | 2018-10-02 21:57 | XMS REPORT ---
Author Author ED DESIREE Organization [facility] Address [address] [place] [address] Care Team Providers Care Assistant Property Manager Name Role Phone ED DESIREE Unavailable PROBLEMS Type Condition ICD9-CM Code [id number] Code Onset Dates Condition Status SNOMED Code Problem Major neurocognitive disorder F03.90 Active 526059598 Problem Major depressive disorder, recurrent episode with anxious distress F33.9 Active [id number] ALLERGIES Substance Reaction Event Type Date Status Morphine Sulfate anaphylaxis Drug Allergy Mar, Active ENCOUNTERS Encounter Location Date Diagnosis [facility] [address] [id number] December, [facility] [id number] [place] [phone] Oct, Dental caries K02.9 [facility] [address] [id number] Sep, Dental caries K02.9 [facility] [id number] [place] [address] [phone] Aug, Dental examination Z01.20 [facility] [address] [id number] Aug, [facility] [id number] [place] [id number] Aug, Major neurocognitive disorder F03.90 and Major depressive disorder, recurrent episode with anxious distress F33.9 [facility] [address] [id number] Aug, Dental caries K02.9 [facility] [address] [place] [id number] Jul, Dental examination Z01.20 [facility] [address] [facility] [id number] [place] [address] Apr, Major depressive disorder, recurrent episode with anxious distress F33.9 and Major neurocognitive disorder F03.90 [facility] [address] [facility] [id number] [place] [address] Mar, Major depressive disorder, recurrent episode with anxious distress F33.9 and Major neurocognitive disorder F03.90 IMMUNIZATIONS No Known Immunizations SOCIAL HISTORY Never Assessed REASON FOR VISIT intake - LOUISE Siddiqi PLAN OF CARE Activity Details Follow Up 4 Weeks Reason: VITAL SIGNS Weight 162 lbs 2017-04-04 Heart Rate 76 bpm 2017-04-04 Respiratory Rate 18 2017-04-04 Blood pressure systolic 122 mmHg 2017-04-04 Blood pressure diastolic 82 mmHg 2017-04-04 MEDICATIONS Medication Instructions Dosage Frequency Start Date End Date Duration Status Ibuprofen 600 MG Orally 4 times a day 1 tablet with food or milk 6h Active Aspir-81 81 MG Orally Once a day 1 tablet 24h Active Ranitidine 150mg Oral Once a day 1 tablet 24h Active Benadryl 25mg by oral route at bedtime as needed 1 Active Hydrocodone-Acetaminophen 5-325 MG Orally every 4 hours as needed 1 tablet as needed Active Requip 3 MG Orally Three times a day 1 tablet 8h Active Aricept 10 MG Orally Once a day 1 tablet at bedtime 24h Active Zestril 5 MG Orally Once a day 1 tablet 24h Active Zofran 4 MG Orally 3 times a day as needed 1 tablet Active Fentanyl 12 MCG/HR Active Neurontin 400 MG Orally Three times a day 1 capsule 8h Active Norvasc 5 MG Orally Once a day 1 tablet 24h Active Cymbalta 60 MG Orally Once a day every morning 1 capsule 30 days Active Senna 8.6 MG Orally Once a day 1 tablet 24h Active Fentanyl 25 MCG/HR Active Xanax 0.25 MG Orally Twice a day 1 tablet 12h 30 days Active Meclizine HCl 25 MG Orally twice daily 1 tablet Active Cymbalta 30 MG Orally once a day (take with 60mg cap every morning) 1 capsule Mar, 30 day(s) Active Simethicone 80 MG Orally every 8 hours as needed 1 tablet Active RESULTS No Results PROCEDURES Procedure Date Ordered Result Body Site PSYTX COMPLEX INTERACTIVE Apr 04, 2017 INSTRUCTIONS MEDICATIONS ADMINISTERED No Known Medications [...]
--- OUTSIDE RECORDS SUMMARY | 2018-10-02 21:57 | XMS REPORT ---
Author Author SUSI CRAIG [facility] Address Unknown Care Team Providers Care Senior Auditor Name Role Phone SUSI CRAIG Unavailable PROBLEMS Type Condition ICD9-CM Code [id number] Code Onset Dates Condition Status SNOMED Code Problem Major neurocognitive disorder F03.90 Active 578053726 Problem Major depressive disorder, recurrent episode with anxious distress F33.9 Active 41436768 ALLERGIES Substance Reaction Event Type Date Status Morphine Sulfate anaphylaxis Drug Allergy December, Active ENCOUNTERS Encounter Location Date Diagnosis [facility] [address] [address] Jan, Major neurocognitive disorder F03.90 and Major depressive disorder, recurrent episode with anxious distress F33.9 [facility] [id number] [place] [address] [phone] December, Dental examination Z01.20 and Dental caries K02.9 [facility] [address] [address] December, Major neurocognitive disorder F03.90 and Major depressive disorder, recurrent episode with anxious distress F33.9 [facility] [address] [place] [address] [phone] Oct, Dental caries K02.9 [facility] [id number] [place] [address] [phone] Sep, Dental caries K02.9 [facility] [address] [id number] Aug, Dental examination Z01.20 [facility] [id number] [place] [address] [phone] Aug, [facility] [address] [address] Aug, Major neurocognitive disorder F03.90 and Major depressive disorder, recurrent episode with anxious distress F33.9 [facility] [address] [facility] [id number] [phone] Aug, Dental caries K02.9 [facility] [address] [facility] [id number] [id number] Jul, Dental examination Z01.20 [facility] [address] [id number] Apr, Major depressive disorder, recurrent episode with anxious distress F33.9 and Major neurocognitive disorder F03.90 [facility] [address] [facility] [id number] [address] Mar, Major depressive disorder, recurrent episode with anxious distress F33.9 and Major neurocognitive disorder F03.90 IMMUNIZATIONS No Known Immunizations SOCIAL HISTORY Never Assessed REASON FOR VISIT EMMANUEL PLAN OF CARE Activity Details Follow Up prn Reason:WILL CALL VITAL SIGNS Blood pressure systolic 104 mmHg 2017-12-09 Blood pressure diastolic 56 mmHg 2017-12-09 MEDICATIONS Medication Instructions Dosage Frequency Start Date End Date Duration Status Senna 8.6 MG Orally Once a day 1 tablet 24h Active ProAir HFA 108 (90 Base) MCG/ACT Inhalation every 6 hrs 2 puffs as needed 6h Active Neurontin 400 MG Orally Three times a day 1 capsule 8h Active Milk of Magnesia 7.75 % Orally Four times a day 5 ml as needed 6h Active Fentanyl 25 MCG/HR Active Aspir-81 81 MG Orally Once a day 1 tablet 24h Active Albuterol Sulfate 0.63 MG/3ML Inhalation every 6 hrs 3 ml as needed 6h Active Cymbalta 60 MG Orally Once a day every morning 1 capsule Active Fentanyl 12 MCG/HR Active Bisacodyl 10 MG Rectal Once a day 1 suppository as needed 24h 30 day( s) Active Zestril 5 MG Orally Once a day 1 tablet 24h Active Hydrocodone-Acetaminophen 5-325 MG Orally every 4 hours as needed 1 tablet as needed Active Norvasc 5 MG Orally Once a day 1 tablet 24h Active Melatonin 3 MG Orally at bedtime 1 tablet Aug, Active Ketoconazole Active Ranitidine 150mg Oral Once a day 1 tablet 24h Active Requip 3 MG Orally Three times a day 1 tablet 8h Active Meclizine HCl 25 MG Orally twice daily 1 tablet Active Muscle Rub 10-15 % Active Acetaminophen 325 MG Orally every 6 hrs 2 tablets as needed 6h Active Eucerin - Active Ibuprofen 600 MG Orally 4 times a day 1 tablet with food or milk 6h Active Aricept 10 MG Orally Once a day 1 tablet at bedtime 24h Active Zofran 4 MG Orally 3 times a day as needed 1 tablet Active Cymbalta 30 MG Orally once a day (take with 60mg cap every morning) 1 capsule Mar, Active RESULTS No Results PROCEDURES Procedure Date Ordered Result Body Site LTD ORAL EVALUATION - PROBLEM FOCUS December 09, 2017 INTRAORL-PERIAPICAL 1 FILM [id number] December 09, 2017 Dental no charge December 09, 2017 INTRAORL-PERIAPICAL EA ADD FILM December 09, 2017 Billing Notes on claim December 09, 2017 INSTRUCTIONS MEDICATIONS ADMINISTERED No Known Medications [...]
--- OUTSIDE RECORDS SUMMARY | 2018-10-02 21:57 | XMS REPORT ---
Author Author ED DESIREE Organization [facility] Address [address] [place] [address] Care Team Providers Care Post Secondary Professional Name Role Phone ED DESIREE Unavailable PROBLEMS Type Condition ICD9-CM Code [id number] Code Onset Dates Condition Status SNOMED Code Problem Major neurocognitive disorder F03.90 Active 657322311 Problem Major depressive disorder, recurrent episode with anxious distress F33.9 Active 33508364 ALLERGIES No Information ENCOUNTERS Encounter Location Date Diagnosis [facility] [id number] [place] [phone] Jan, Major neurocognitive disorder F03.90 and Major depressive disorder, recurrent episode with anxious distress F33.9 [facility] [id number] [place] [address] [phone] December, Dental examination Z01.20 and Dental caries K02.9 [facility] [address] [address] December, Major neurocognitive disorder F03.90 and Major depressive disorder, recurrent episode with anxious distress F33.9 [facility] [address] [place] [address] [phone] Oct, Dental caries K02.9 [facility] [id number] [place] [address] [phone] Sep, Dental caries K02.9 [facility] [address] [id number] Aug, Dental examination Z01.20 [facility] [id number] [place] [address] [phone] Aug, [facility] [address] [address] Aug, Major neurocognitive disorder F03.90 and Major depressive disorder, recurrent episode with anxious distress F33.9 [facility] [address] [facility] [id number] [id number] Aug, Dental caries K02.9 [facility] [address] [id number] [id number] Jul, Dental examination Z01.20 [facility] [address] [id number], [place] [address] Apr, Major depressive disorder, recurrent episode with anxious distress F33.9 and Major neurocognitive disorder F03.90 [facility] [address] [id number], [place] [address] Mar, Major depressive disorder, recurrent episode with anxious distress F33.9 and Major neurocognitive disorder F03.90 IMMUNIZATIONS No Known Immunizations SOCIAL HISTORY Never Assessed REASON FOR VISIT Medication questions PLAN OF CARE VITAL SIGNS MEDICATIONS No Known Medications RESULTS No Results PROCEDURES No Known procedures INSTRUCTIONS MEDICATIONS ADMINISTERED No Known Medications MEDICAL [...]
--- OUTSIDE RECORDS SUMMARY | 2018-10-02 21:57 | XMS REPORT ---
Author Author SUSI CRAIG [facility] Address Unknown Care Team Providers Care Academic Director Name Role Phone SUSI CRAIG Unavailable PROBLEMS Type Condition ICD9-CM Code [id number] Code Onset Dates Condition Status SNOMED Code Problem Major neurocognitive disorder F03.90 Active 387597462 Problem Major depressive disorder, recurrent episode with anxious distress F33.9 Active 86578345 ALLERGIES Substance Reaction Event Type Date Status Morphine Sulfate anaphylaxis Drug Allergy Jul, Active ENCOUNTERS Encounter Location Date Diagnosis [facility] [address] [address] Jan, Major neurocognitive disorder F03.90 and Major depressive disorder, recurrent episode with anxious distress F33.9 [facility] [id number] [place] [address] [phone] December, Dental examination Z01.20 and Dental caries K02.9 [facility] [address] [address] December, Major neurocognitive disorder F03.90 and Major depressive disorder, recurrent episode with anxious distress F33.9 [facility] [address] [place] [phone] Oct, Dental caries K02.9 [facility] [id number] [place] [address] [phone] Sep, Dental caries K02.9 [facility] [address] [id number] Aug, Dental examination Z01.20 [facility] [id number] [place] [address] [phone] Aug, [facility] [address] [address] Aug, Major neurocognitive disorder F03.90 and Major depressive disorder, recurrent episode with anxious distress F33.9 [facility] [address] [facility] [id number] [id number] Aug, Dental caries K02.9 [facility] [address] [facility] [id number] [id number] Jul, Dental examination Z01.20 [facility] [address]65[address] [address] Apr, Major depressive disorder, recurrent episode with anxious distress F33.9 and Major neurocognitive disorder F03.90 [facility] [address]65[address] [address] Mar, Major depressive disorder, recurrent episode with anxious distress F33.9 and Major neurocognitive disorder F03.90 IMMUNIZATIONS No Known Immunizations SOCIAL HISTORY Never Assessed REASON FOR VISIT ce PLAN OF CARE Activity Details Follow Up 1 Week Reason:extract # 9 # 10 root tips VITAL SIGNS MEDICATIONS Medication Instructions Dosage Frequency Start Date End Date Duration Status Fentanyl 12 MCG/HR Active Cymbalta 30 MG Orally once a day (take with 60mg cap every morning) 1 capsule Mar, Not-Taking Milk of Magnesia 7.75 % Orally Four times a day 5 ml as needed 6h Active Zestril 5 MG Orally Once a day 1 tablet 24h Active Asper-Flex 10 % Externally Four times a day 1 application to affected area as needed 6h Active Neurontin 400 MG Orally Three times a day 1 capsule 8h Active Ibuprofen 600 MG Orally 4 times a day 1 tablet with food or milk 6h Active Potassium 75 MG Orally Once a day 1 tablet 24h 30 day(s) Active Meclizine HCl 25 MG Orally twice daily 1 tablet Active Norvasc 5 MG Orally Once a day 1 tablet 24h Active Benadryl 25mg by oral route at bedtime as needed 1 Active Fentanyl 25 MCG/HR Active Amoxicillin 500 MG Orally every 8 hrs 1 capsule 8h 7 days Active Eucerin - Active Tylenol 325 MG Orally every 4 hrs 2 tablets as needed 4h Not- Taking Cymbalta 60 MG Orally Once a day every morning 1 capsule Active Requip 3 MG Orally Three times a day 1 tablet 8h Active Zofran 4 MG Orally 3 times a day as needed 1 tablet Active Ranitidine 150mg Oral Once a day 1 tablet 24h Active Mucinex 600 MG Orally every 12 hrs 1 tablet as needed 12h Active Albuterol Sulfate 0.63 MG/3ML Inhalation every 6 hrs 3 ml as needed 6h Active Aricept 10 MG Orally Once a day 1 tablet at bedtime 24h Active Xanax 0.25 MG Orally Once a day 1 tablet 24h 30 days Active Simethicone 80 MG Orally every 8 hours as needed 1 tablet Active Blaine Saline Nasal Gel - Active Tussin 100 MG/5ML Orally every 4 hrs 10 ml as needed 4h Active Bisacodyl 10 MG Rectal Once a day 1 suppository as needed 24h 30 day( s) Active Senna 8.6 MG Orally Once a day 1 tablet 24h Active Muscle Rub 10-15 % Active Acetaminophen 325 MG Orally every 6 hrs 2 tablets as needed 6h Active Aspir-81 81 MG Orally Once a day 1 tablet 24h Active ProAir HFA 108 (90 Base) MCG/ACT Inhalation every 6 hrs 2 puffs as needed 6h Active Hydrocodone-Acetaminophen 5-325 MG Orally every 4 hours as needed 1 tablet as needed Active RESULTS No Results PROCEDURES Procedure Date Ordered Result Body Site LTD ORAL EVALUATION - PROBLEM FOCUS Jul 27, 2017 INTRAORL-PERIAPICAL 1 FILM [id number] Jul 27, 2017 INSTRUCTIONS MEDICATIONS ADMINISTERED No Known Medications [...]
--- OUTSIDE RECORDS SUMMARY | 2018-10-02 21:57 | XMS REPORT ---
Author Author ED DESIREE Organization [facility] Address [address] [place] [address] Care Team Providers Care Box Blank Machine Operator Name Role Phone ED DESIREE Unavailable PROBLEMS Type Condition ICD9-CM Code [id number] Code Onset Dates Condition Status SNOMED Code Problem Major neurocognitive disorder F03.90 Active 406912658 Problem Major depressive disorder, recurrent episode with anxious distress F33.9 Active [id number] ALLERGIES No Information ENCOUNTERS Encounter Location Date Diagnosis [facility] [id number] [place] [phone] Jan, Major neurocognitive disorder F03.90 and Major depressive disorder, recurrent episode with anxious distress F33.9 [facility] [id number] [place] [phone] December, Dental examination Z01.20 and Dental caries K02.9 [facility] [address] [phone] December, Major neurocognitive disorder F03.90 and Major depressive disorder, recurrent episode with anxious distress F33.9 [facility] [id number] [place] [id number] Oct, Dental caries K02.9 [facility] [id number] [place] [phone] Sep, Dental caries K02.9 [facility] [address] [id number] Aug, Dental examination Z01.20 [facility] [id number] [place] [phone] Aug, [facility] [address] [phone] Aug, Major neurocognitive disorder F03.90 and Major depressive disorder, recurrent episode with anxious distress F33.9 [facility] [address] [facility] [id number] [id number] Aug, Dental caries K02.9 [facility] [address] [facility] [id number] [phone] Jul, Dental examination Z01.20 [facility] [address] [address] Apr, Major depressive disorder, recurrent episode with anxious distress F33.9 and Major neurocognitive disorder F03.90 [facility] [address] [address] Mar, Major depressive disorder, recurrent episode with anxious distress F33.9 and Major neurocognitive disorder F03.90 IMMUNIZATIONS No Known Immunizations SOCIAL HISTORY Never Assessed REASON FOR VISIT f/u Slava MENDEZ PLAN OF CARE Activity Details Follow Up 2 Months, prn Reason: VITAL SIGNS Weight 137.4 lbs 2017-12-08 Heart Rate 77 bpm 2017-12-08 Respiratory Rate 18 2017-12-08 Blood pressure systolic 102 mmHg 2017-12-08 Blood pressure diastolic 68 mmHg 2017-12-08 MEDICATIONS Medication Instructions Dosage Frequency Start Date End Date Duration Status Bisacodyl 10 MG Rectal Once a day 1 suppository as needed 24h 30 day( s) Active Ketoconazole Active Requip 3 MG Orally Three times a day 1 tablet 8h Active Albuterol Sulfate 0.63 MG/3ML Inhalation every 6 hrs 3 ml as needed 6h Active Meclizine HCl 25 MG Orally twice daily 1 tablet Active Fentanyl 12 MCG/HR Active Aricept 10 MG Orally Once a day 1 tablet at bedtime 24h Active Aspir-81 81 MG Orally Once a day 1 tablet 24h Active Hydrocodone-Acetaminophen 5-325 MG Orally every 4 hours as needed 1 tablet as needed Active Muscle Rub 10-15 % Active Ranitidine 150mg Oral Once a day 1 tablet 24h Active Norvasc 5 MG Orally Once a day 1 tablet 24h Active Ibuprofen 600 MG Orally 4 times a day 1 tablet with food or milk 6h Active Fentanyl 25 MCG/HR Active Cymbalta 30 MG Orally once a day (take with 60mg cap every morning) 1 capsule Mar, Active Zofran 4 MG Orally 3 times a day as needed 1 tablet Active Zestril 5 MG Orally Once a day 1 tablet 24h Active Senna 8.6 MG Orally Once a day 1 tablet 24h Active Milk of Magnesia 7.75 % Orally Four times a day 5 ml as needed 6h Active Cymbalta 60 MG Orally Once a day every morning 1 capsule Active Acetaminophen 325 MG Orally every 6 hrs 2 tablets as needed 6h Active Neurontin 400 MG Orally Three times a day 1 capsule 8h Active Melatonin 3 MG Orally at bedtime 1 tablet Aug, Active Eucerin - Active ProAir HFA 108 (90 Base) MCG/ACT Inhalation every 6 hrs 2 puffs as needed 6h Active RESULTS No Results PROCEDURES Procedure Date Ordered Result Body Site [facility] VISIT ESTABLISHED PATIENT December 08, 2017 INSTRUCTIONS MEDICATIONS ADMINISTERED No Known Medications [...]
--- OUTSIDE RECORDS SUMMARY | 2018-10-02 21:57 | XMS REPORT ---
Author Author ED DESIREE Organization [facility] Address [address] [place] [address] Care Team Providers Care Marketing Planner Name Role Phone ED DESIREE Unavailable PROBLEMS Type Condition ICD9-CM Code [id number] Code Onset Dates Condition Status SNOMED Code Problem Major neurocognitive disorder F03.90 Active 129909360 Problem Major depressive disorder, recurrent episode with anxious distress F33.9 Active [id number] ALLERGIES Substance Reaction Event Type Date Status Morphine Sulfate anaphylaxis Drug Allergy Aug, Active ENCOUNTERS Encounter Location Date Diagnosis [facility] [address] [phone] Jan, Major neurocognitive disorder F03.90 and Major depressive disorder, recurrent episode with anxious distress F33.9 [facility] [id number] [place] [phone] December, Dental examination Z01.20 and Dental caries K02.9 [facility] [id number] [place] [phone] December, Major neurocognitive disorder F03.90 and Major depressive disorder, recurrent episode with anxious distress F33.9 [facility] [id number] [place] [id number] Oct, Dental caries K02.9 [facility] [id number] [place] [id number] Sep, Dental caries K02.9 [facility] [id number] [place] [id number] Aug, Dental examination Z01.20 [facility] [id number] [place] [id number] Aug, [facility] [address] [place] [address] [address] Aug, Major neurocognitive disorder F03.90 and Major depressive disorder, recurrent episode with anxious distress F33.9 [facility] [address] [id number] Aug, Dental caries K02.9 [facility] [address] [place] [address] [id number] Jul, Dental examination Z01.20 [facility] [id number] [place] [phone] Apr, Major depressive disorder, recurrent episode with anxious distress F33.9 and Major neurocognitive disorder F03.90 [facility] [address] [place] [phone] Mar, Major depressive disorder, recurrent episode with anxious distress F33.9 and Major neurocognitive disorder F03.90 IMMUNIZATIONS No Known Immunizations SOCIAL HISTORY Never Assessed REASON FOR VISIT f/u Belinda PLAN OF CARE Activity Details Follow Up 4 Months Reason: VITAL SIGNS Weight 183 lbs 2017-08-11 Heart Rate 76 bpm 2017-08-11 Respiratory Rate 20 2017-08-11 Blood pressure systolic 120 mmHg 2017-08-11 Blood pressure diastolic 78 mmHg 2017-08-11 MEDICATIONS Medication Instructions Dosage Frequency Start Date End Date Duration Status Muscle Rub 10-15 % Active Neurontin 400 MG Orally Three times a day 1 capsule 8h Active Simethicone 80 MG Orally every 8 hours as needed 1 tablet Active Fentanyl 12 MCG/HR Active Albuterol Sulfate 0.63 MG/3ML Inhalation every 6 hrs 3 ml as needed 6h Active Aricept 10 MG Orally Once a day 1 tablet at bedtime 24h Active Benadryl 25mg by oral route at bedtime as needed 1 Active [place]ailles Saline Nasal Gel - Active ProAir HFA 108 (90 Base) MCG/ACT Inhalation every 6 hrs 2 puffs as needed 6h Active Aspir-81 81 MG Orally Once a day 1 tablet 24h Active Potassium 75 MG Orally Once a day 1 tablet 24h 30 day(s) Active Trazodone HCl 50 MG Orally Once a day 1 tablet at bedtime as needed for sleep 24h Aug, 30 day(s) Active Cymbalta 30 MG Orally once a day (take with 60mg cap every morning) 1 capsule Mar, Active Acetaminophen 325 MG Orally every 6 hrs 2 tablets as needed 6h Active Cymbalta 60 MG Orally Once a day every morning 1 capsule Active Meclizine HCl 25 MG Orally twice daily 1 tablet Active Ibuprofen 600 MG Orally 4 times a day 1 tablet with food or milk 6h Active Tussin 100 MG/5ML Orally every 4 hrs 10 ml as needed 4h Active Tylenol 325 MG Orally every 4 hrs 2 tablets as needed 4h Active Asper-Flex 10 % Externally Four times a day 1 application to affected area as needed 6h Active Ranitidine 150mg Oral Once a day 1 tablet 24h Active Milk of Magnesia 7.75 % Orally Four times a day 5 ml as needed 6h Active Norvasc 5 MG Orally Once a day 1 tablet 24h Active Fentanyl 25 MCG/HR Active Senna 8.6 MG Orally Once a day 1 tablet 24h Active Bisacodyl 10 MG Rectal Once a day 1 suppository as needed 24h 30 day( s) Active Zestril 5 MG Orally Once a day 1 tablet 24h Active Hydrocodone-Acetaminophen 5-325 MG Orally every 4 hours as needed 1 tablet as needed Active Eucerin - Active Requip 3 MG Orally Three times a day 1 tablet 8h Active Melatonin 3 MG Orally at bedtime 1 tablet Aug, 30 day(s) Active Zofran 4 MG Orally 3 times a day as needed 1 tablet Active Mucinex 600 MG Orally every 12 hrs 1 tablet as needed 12h Active RESULTS No Results PROCEDURES Procedure Date Ordered Result Body Site [facility] VISIT ESTABLISHED PATIENT Aug 11, 2017 INSTRUCTIONS MEDICATIONS ADMINISTERED No Known Medications [...]
[2018-10-02] MEDS ORDERED: BISACODYL 10 MG SUPP (DULCOLAX) PR PRN (23:00)
[2018-10-02] MEDS ORDERED: RT-ALBUTEROL/IPRATROPIUM 3 ML (DUONEB) VIAL INH PRN (23:00)
[2018-10-02] MEDS ORDERED: PROMETHAZINE INJ 25 MG/ML (PHENERGAN) AMP IV PRN (23:00)
[2018-10-02] MEDS ORDERED: ONDANSETRON 4 MG/2 ML (SDV) Z0FRAN IV PRN (23:00)
[2018-10-02] MEDS ORDERED: LORazepam ORAL CONCENTRATE 2 MG/ML 30 ML (ATIVAN) PO PRN (23:00)
[2018-10-02] MEDS ORDERED: ACETAMINOPHEN 650 MG SUPP (TYLENOL) PR PRN (23:00)
[2018-10-02] MEDS ORDERED: ACETAMINOPHEN 500 MG TAB (TYLENOL) PO PRN (23:00)
--- NOTE | 2018-10-02 23:30 | NUR ---
JELLY BRAVO admitted to room 409-1, with an admitting diagnosis of COMFORT CARE FOR PNA, SEPTIC SHOCK, on 10/02/18 from ED via , accompanied by ED STAFF, AND YAN. JELLY BRAVO introduced to surroundings, call light, bed controls, phone, TV, temperature control, lights, meal times, smoking policy, visitor policy, side rail policy, bathrooms and showers. Patient Rights given to patient in the handbook. JELLY BRAVO verbalizes understanding that [facility] is not responsible for the loss or damage to any personal effects or valuables that are kept in the patients posession during their hospitalization. Patient Care Plans and Discharge Planning were discussed with pt and family. JELLY BRAVO verbalizes understanding of Interdisciplinary Patient Education. Patient and/or family were informed about the Rapid Response Team and its purpose.
[2018-10-02] MEDS: fentaNYL INJECTION 100 MCG/2 ML AMP IV PRN (23:33)
[2018-10-03] VITALS: BP 112/58
[2018-10-03] MEDS: LORazepam INJ 2 MG/ML (ATIVAN) VIAL IV PRN ×4 (05:56→23:24)
[2018-10-03] MEDS ORDERED: MAGN400T39 PO (08:47)
[2018-10-03] MEDS ORDERED: ATOR10TA66 PO (08:47)
[2018-10-03] MEDS ORDERED: OMG1KC PO (08:47)
[2018-10-03] MEDS ORDERED: MINE120C3 TP (08:47)
[2018-10-03] MEDS ORDERED: MELA5TAB14 PO (08:47)
[2018-10-03] MEDS ORDERED: SODI14.12 NS (08:47)
[2018-10-03] MEDS ORDERED: GUAI100L36 PO (08:47)
[2018-10-03] MEDS ORDERED: SENN-145 PO (08:47)
[2018-10-03] MEDS ORDERED: RT-ALBUINH IH (08:47)
[2018-10-03] MEDS ORDERED: IPRA3AMP31 NEB (08:47)
[2018-10-03] MEDS ORDERED: METH113C21 TP (08:47)
[2018-10-03] MEDS ORDERED: ASPI-983 PO (08:47)
[2018-10-03] MEDS ORDERED: LISI-556 PO (08:47)
[2018-10-03] MEDS ORDERED: POLY15DR14 OU (08:47)
[2018-10-03] MEDS ORDERED: DULO30CA48 PO (08:47)
--- NOTE | 2018-10-03 08:54 | NUR ---
UPDATED MED REC WITH ORDER REVIEW REPORT FROM [facility]
--- NOTE | 2018-10-03 10:52 | NUR ---
PALLIATIVE CARE/DISCHARGE PLAN: Family has asked that patient return to [facility] with [place] [facility]. iAme Arthur RN and this PC RN rounded on the patient and answered questions. I have spoken with fabrizio Pacheco w [facility] and they will arrange for transport once discharged.
[2018-10-03] MEDS ORDERED: LORA2ORA5 PO (11:01)
--- NOTE | 2018-10-03 11:20 | Short Stay Summary-Hospitalist ---
History of Present Illness Date Seen 10/03/18 Attending Physician Brenden Davila MD PCP Jonathan Segal MD Referring Physician Date of Admission Oct 02, 2018 at 21:45 Home Medications & Allergies Home Medications Reviewed patient Home Medication Reconciliation performed by pharmacy medication reconciliations central sterile technician and/or nursing. Patients Allergies have been reviewed. Allergies Allergies Coded Allergies morphine (Verified Allergy, Severe, EDENA, 09/10/16) Past Dfaydcu-Twyhuk-Lyvvrm Hx Patient Social History Alcohol Use: Denies Use Recreational Drug Use: No Smoking Status: Current Everyday Smoker Type Used: Cigarettes 2nd Hand Smoke Exposure: No Recent Foreign Travel: No Contact w/other who traveled: No Recent Hopitalizations: No Recent Infectious Disease Expo: No Immunizations Up To Date Date of Influenza Vaccine: Jul 03, 2018 Seasonal Allergies Seasonal Allergies: No Past Medical History Surgeries: Gallbladder, Orthopedic, Vascular Surgery Cardiac: Aneurysm, Hypertension, Peripheral Vascular Neurological: Dementia, Headaches /Migraines, Neuropathy, Stroke Gastrointestinal: Chronic Constipation Psychosocial: Sleep Difficulties, Anxiety, Depression Physical Exam Physical Exam Vital Signs Vital Signs - First Documented 10/02/18 10/02/18 20:00 21:51 Temp 98.8 Pulse 114 Resp 19 B/P (MAP) 123/ Pulse Ox 92 O2 Delivery Nasal Cannula O2 Flow Rate 4.00 Capillary Refill : Less Than 3 SecondsLess Than 3 Seconds Height, Weight, BMI Height: 5'6.00" Weight: 145lbs. 2.0oz. 65.951409ne; 23.4 BMI Method:Stated General Appearance: No Apparent Distress, Chronically ill Eyes: Bilateral Eye Normal Inspection, Bilateral Eye PERRL, Bilateral Eye EOMI HEENT: PERRL/EOMI, TMs Normal; No Moist Mucous Membranes; Other (oropharynx is very dry) Neck: Full Range of Motion, Normal Inspection, Non Tender, Supple Respiratory: Chest Non Tender, No Accessory Muscle Use, No Respiratory Distress , Expiration (Prolonged), Wheezing (Bilateral) Cardiovascular: No Regular Rate, Rhythm; No Edema, Normal Peripheral Pulses Gastrointestinal: Normal Bowel Sounds, Non Tender, Soft Extremity: Normal Capillary Refill, Normal Inspection, No Calf Tenderness, No Pedal Edema Neurologic/Psychiatric: Alert, No Motor/Sensory Deficits; No Normal Mood/ Affect (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 Clinical Quality Measures DVT/VTE Risk/Contraindication: Risk Factor Score Per Nursin RFS Level Per Nursing on Admit: 4+=Very High BLOSSOM TAMEZ MD Oct 03, 2018 11:20
--- NOTE | 2018-10-03 12:07 | NUR ---
DISCHARGE PLAN: This RN faxed unfinalized order to [facility] and to [facility]. Will need bed in place before as she has had a slight change in condition since decision to discharge. Became diaphoretic, pale/clammy, talking out of head somewhat. This occurred after PRN Ativan given. Resting now with cool cloth on forehead.
[2018-10-03] MEDS: fentaNYL INJECTION 100 MCG/2 ML AMP IV PRN ×3 (13:24→21:08)
--- NOTE | 2018-10-03 13:29 | NUR ---
PALLIATIVE CARE RN in to check on patient. She is still struggling with clamminess and diaphoresis. Spoke with family about her decline and it has been decided to hold discharge. Calling all family in to say goodbye but anticipate she will within 24 to 48 hours. I have spoke with [facility] and to [place] [facility] regarding change of discharge plans.
--- NOTE | 2018-10-03 13:43 | History & Physical-Hospitalist ---
History of Present Illness HPI/Chief Complaint Pt is an 83yoCF with a PMH of COPD and dementia who presented to the ER due shortness of breath and worsening confusion. She is confused and unable to provide any history. Per notes she was brought in by EMS short SOB after failing albuterol at the [facility]. She was found to have a pneumonia and be very hypotensive meeting criteria for septic shock. Family elected comfort measures only and she was admitted for symptom management of shortness of breath. Family states she looks much better today but is still confused and coughing. Met with family and patient with palliative care nurse and [place] hosp[facility] nurse to answer questions. They would like to discharge back to [facility] if able to enroll in hospice. Source: patient Date Seen 10/03/18 Time Seen by a Provider: 13:43 Attending Physician Brenden Davila MD PCP Jonathan Segal MD Referring Physician Date of Admission Oct 02, 2018 at 21:45 Home Medications & Allergies Home Medications Reviewed patient Home Medication Reconciliation performed by pharmacy medication reconciliations computed tomography technician and/or nursing. Patients Allergies have been reviewed. Allergies Allergies Coded Allergies morphine (Verified Allergy, Severe, EDENA, 09/10/16) Past Oxevplp-Dcfbro-Smuamc Hx Past Med/Social Hx: Reviewed Nursing Past Med/Soc Hx Patient Social History Alcohol Use: Denies Use Recreational Drug Use: No Smoking Status: Current Everyday Smoker Type Used: Cigarettes 2nd Hand Smoke Exposure: No Recent Foreign Travel: No Contact w/other who traveled: No Recent Hopitalizations: No Recent Infectious Disease Expo: No Immunizations Up To Date Date of Influenza Vaccine: Jul 03, 2018 Seasonal Allergies Seasonal Allergies: No Past Medical History Surgeries: Gallbladder, Orthopedic, Vascular Surgery Cardiac: Aneurysm, Hypertension, Peripheral Vascular Neurological: Dementia, Headaches /Migraines, Neuropathy, Stroke Gastrointestinal: Chronic Constipation Psychosocial: Sleep Difficulties, Anxiety, Depression Family History Reviewed Nursing Family Hx Review of Systems ROS-Unable to Obtain: dementia Constitutional: see HPI Physical Exam Physical Exam Vital Signs Vital Signs - First Documented 10/02/18 10/02/18 20:00 21:51 Temp 98.8 Pulse 114 Resp 19 B/P (MAP) 123/ Pulse Ox 92 O2 Delivery Nasal Cannula O2 Flow Rate 4.00 Capillary Refill : Less Than 3 SecondsLess Than 3 Seconds Height, Weight, BMI Height: 5'6.00" Weight: 145lbs. 2.0oz. 65.941447dc; 23.4 BMI Method:Stated General Appearance: No Apparent Distress, Chronically ill HEENT: Moist Mucous Membranes; No Scleral Icterus (L), No Scleral Icterus (R) Neck: Normal Inspection, Supple Respiratory: No Accessory Muscle Use, No Respiratory Distress, Crackles, Other (slightly tachypneic) Cardiovascular: Regular Rate, Rhythm, No Murmur Gastrointestinal: Normal Bowel Sounds, Non Tender, Soft Extremity: No Calf Tenderness, No Pedal Edema Neurologic/Psychiatric: Alert, No Motor/Sensory Deficits, Normal Mood/Affect, Disoriented Skin: Normal Color, Warm/Dry Results Results/Procedures Labs Laboratory Tests 10/02/18 20:06 Patient resulted labs reviewed. Imaging: Reviewed Imaging Report Assessment/Plan Admission Diagnosis septic shock Admission Status: Inpatient Order (span 2 midnights) Reason for Inpatient Admission: comfort measures Diagnosis/Problems Diagnosis/Problems (1) Need for comfort care Status: Acute Assessment & Plan: Plan initially was to DC back to [place] for hospice but patient has continued to decline throughout day Will remain inpatient for comfort measures Comfort care orderset place (2) Septic shock Status: Acute Assessment & Plan: Septic shock on presentation due to pneumonia Family elected comfort measures only Palliative care consulted, appreciate recs (3) Right lower lobe pneumonia Status: Acute Assessment & Plan: Comfort measures only Qualifiers: Pneumonia type: due to unspecified organism Qualified Codes: J18.1 - Lobar pneumonia, unspecified organism Clinical Quality Measures DVT/VTE Risk/Contraindication: Risk Factor Score Per Nursin RFS Level Per Nursing on Admit: 4+=Very High BLOSSOM TAMEZ MD Oct 03, 2018 13:43
[2018-10-03] MEDS: ATROPINE 1% OPHTHALMIC SOLN 2 ML SL PRN ×2 (16:47→23:24)
[2018-10-04] MEDS: LORazepam INJ 2 MG/ML (ATIVAN) VIAL IV PRN ×4 (02:16→17:41)
[2018-10-04] MEDS: fentaNYL INJECTION 100 MCG/2 ML AMP IV PRN ×6 (02:16→17:40)
[2018-10-04] MEDS: SALIVA STIMULANT MOUTH SPRAY (BIOTENE) 1.5 OZ MM PRN ×2 (02:17→06:01)
[2018-10-04] MEDS: ARTIFICAL TEARS 0.4 ML UNIT DOSE (REFRESH PLUS) OU PRN (09:05)
[2018-10-04] MEDS: GLYCOPYRROLATE 0.2 MG/ML (ROBINUL) 2 ML VIAL IV PRN ×2 (09:05→17:40)
--- NOTE | 2018-10-04 09:59 | NUR ---
PALLIATIVE CARE RN in to see the patient. She looks weak but better than she looked yesterday when discharge was held. Patient had become very diaphoretic and lethargic yesterday afternoon and discharge was held do to the possibility of passing in transit. This morning she is verbal and denying pain. She has been offered and declined food saying she is not hungry. She is on 3 L NC and has been getting PRN comfort medications of Fentanyl and Ativan. Possible discharge with return to [facility] today with [place] [facility]. Will see what Dr. Montes De Oca thinks upon her assessment.
--- NOTE | 2018-10-04 10:59 | Progress Note-Hospitalist ---
Subjective HPI/CC On Admission Date Seen by Provider: Oct 04, 2018 Time Seen by Provider: 10:54 Pt is an 83yoCF with a PMH of COPD and dementia who presented to the ER due shortness of breath and worsening confusion. She is confused and unable to provide any history. Per notes she was brought in by EMS short SOB after failing albuterol at the [facility]. She was found to have a pneumonia and be very hypotensive meeting criteria for septic shock. Family elected comfort measures only and she was admitted for symptom management of shortness of breath. Family states she looks much better today but is still confused and coughing. Met with family and patient with palliative care nurse and [place] [facility] nurse to answer questions. They would like to discharge back to [facility] if able to enroll in hospice. Subjective/Events-last exam Pt awakes to verbal stimuli but mostly mumbles. Family at bedside with no concerns. States they believe she is mostly comfortbale but did just complain of pain in her legs. Focused Exam Lactate Level 10/02/18 20:06: Lactic Acid Level 2.87*H Objective Exam Vital Signs Vital Signs Date Time Temp Pulse Resp B/P (MAP) Pulse Ox O2 Delivery O2 Flow Rate FiO2 10/03/18 20:00 Nasal Cannula 3.00 10/03/18 07:50 92 10/03/18 00:00 98.8 102 20 112/58 Capillary Refill : Less Than 3 SecondsLess Than 3 Seconds General Appearance: No Apparent Distress, Chronically ill HEENT: Moist Mucous Membranes; No Scleral Icterus (L), No Scleral Icterus (R) Neck: Normal Inspection, Supple Respiratory: No Accessory Muscle Use, No Respiratory Distress, Crackles, Other (slightly tachypneic) Cardiovascular: Regular Rate, Rhythm, No Murmur Gastrointestinal: Normal Bowel Sounds, Non Tender, Soft Extremity: No Calf Tenderness, No Pedal Edema Neurologic/Psychiatric: Alert, No Motor/Sensory Deficits, Normal Mood/Affect, Disoriented Skin: Normal Color, Warm/Dry Results/Procedures Lab Patient resulted labs reviewed. Imaging: Reviewed Imaging Report Assessment/Plan Assessment and Plan Assess & Plan/Chief Complaint Septic Shock, Comfort measures only Diagnosis/Problems Diagnosis/Problems (1) Need for comfort care Status: Acute Assessment & Plan: Will remain inpatient for comfort measures Comfort care orderset place Family reports severe allergy to morphine so will avoid (2) Septic shock Status: Acute Assessment & Plan: Septic shock on presentation due to pneumonia Family elected comfort measures only Palliative care consulted, appreciate recs (3) Right lower lobe pneumonia Status: Acute Assessment & Plan: Comfort measures only Qualifiers: Pneumonia type: due to unspecified organism Qualified Codes: J18.1 - Lobar pneumonia, unspecified organism Clinical Quality Measures DVT/VTE Risk/Contraindication: Risk Factor Score Per Nursin RFS Level Per Nursing on Admit: 4+=Very High BLOSSOM TAMEZ MD Oct 04, 2018 10:59
--- NOTE | 2018-10-04 14:00 | NUR ---
Patient is sitting up in bed and talking with the family..alert but sleepy/lethargic. She has agreed to attempt to have jell-o and some orange sherbet She denies pain except for when she coughs at this time.
--- NOTE | 2018-10-04 14:15 | NUR ---
Pastoral care visit, provided prayer and support.
[2018-10-04] MEDS: ATROPINE 1% OPHTHALMIC SOLN 2 ML SL PRN (14:36)
[2018-10-04] MEDS ORDERED: BISACODYL 5 MG (DULCOLAX) TABLET PO PRN (17:45)
[2018-10-05] MEDS: LORazepam INJ 2 MG/ML (ATIVAN) VIAL IV PRN ×4 (00:48→14:33)
[2018-10-05] MEDS: fentaNYL INJECTION 100 MCG/2 ML AMP IV PRN ×6 (00:49→14:33)
[2018-10-05] MEDS: GLYCOPYRROLATE 0.2 MG/ML (ROBINUL) 2 ML VIAL IV PRN ×2 (04:38→13:31)
[2018-10-05] MEDS ORDERED: BISACODYL 5 MG (DULCOLAX) TABLET PO NR (08:45)
[2018-10-05] MEDS: ARTIFICAL TEARS 0.4 ML UNIT DOSE (REFRESH PLUS) OU PRN ×2 (09:23→13:31)
[2018-10-05] MEDS: SALIVA STIMULANT MOUTH SPRAY (BIOTENE) 1.5 OZ MM PRN (09:23)
--- NOTE | 2018-10-05 10:48 | Discharge Summary-Hospitalist ---
Diagnosis/Chief Complaint Date of Admission Oct 04, 2018 at 13:26 Date of Discharge Discharge Date: Oct 05, 2018 Admission Diagnosis septic shock Discharge Diagnosis (1) Need for comfort care Status: Acute Assessment & Plan: Will remain inpatient for comfort measures Comfort care orderset place Family reports severe allergy to morphine so will avoid (2) Septic shock Status: Acute Assessment & Plan: Septic shock on presentation due to pneumonia Family elected comfort measures only Palliative care consulted, appreciate recs (3) Right lower lobe pneumonia Status: Acute Assessment & Plan: Comfort measures only Discharge Summary Discharge Physical Exam Allergies: Coded Allergies: morphine (Verified Allergy, Severe, EDENA, 09/10/16) Vitals & I&Os Vital Signs Date Time Temp Pulse Resp B/P (MAP) Pulse Ox O2 Delivery O2 Flow Rate FiO2 10/05/18 14:36 102 20 112/58 92 Nasal Cannula 3.00 10/03/18 00:00 98.8 General Appearance: No Apparent Distress, Chronically ill HEENT: Moist Mucous Membranes; No Scleral Icterus (L), No Scleral Icterus (R) Respiratory: No Accessory Muscle Use, No Respiratory Distress, Crackles, Other (slightly tachypneic) Cardiovascular: Regular Rate, Rhythm, No Murmur Gastrointestinal: Normal Bowel Sounds, Non Tender, Soft Extremity: No Calf Tenderness, No Pedal Edema Skin: Normal Color, Warm/Dry Neurologic/Psychiatric: Alert, No Motor/Sensory Deficits, Normal Mood/Affect, Disoriented Hospital Course Pt presented to the ER in septic shock from pneumonia. Dr Siemntal discussed options with family given severity of illness. Family elected to pursue hospice and comfort measures only. She was admitted for management of her air hunger. [facility] was [facility] for furhter support. I called and updated Morteza Cochran APRN for Dr Zamora of this. Labs (last 24 hrs) Microbiology 10/02/18 Blood Culture - Preliminary, Resulted No growth 10/02/18 Influenza Types A,B Antigen (GUY) - Final, Complete 10/02/18 Urine Culture - Final, Complete Enterococcus faecalis Aerococcus urinae See Comments Patient resulted labs reviewed. Imaging: Reviewed Imaging Report Discussion & Recommendations Discharge Planning: >30 minutes discharge planning Discharge Home Medications: Active Scripts Active Lorazepam 2 Mg/1 Ml Oral.conc 1-2 Mg PO Q2H PRN Reported Tussin (Guaifenesin) 100 Mg/5 Ml Liquid 10 Ml PO Q4H PRN Muscle Rub Cream (Methyl Salicylate/Menthol) 113 Gm Cream..g. TP BID APPLY TO LOWER BACK Melatonin 5 Mg Tablet 5 Mg PO HS Magnesium (Magnesium Oxide) 400 Mg Tablet 400 Mg PO HS Iprat-Albut 0.5-3(2.5) mg/3 ml (Ipratropium/Albuterol Sulfate) 3 Ml Ampul.neb 3 Ml NEB Q4H PRN Eucerin Creme (Mineral Oil/Petrolatum,White) 120 Gm Cream..g. TP BID APPLY TO BILAT LE [place] Saline Nasal Gel (Sodium Chloride/Aloe Vera) 14.1 Gm Gel..gram. NS UD PRN Artificial Tears Drops (Polyvinyl Alcohol/Povidone) 15 Ml Drops 1 Drop OU BID Proair Hfa (Albuterol Sulfate) 1 Puff Puff 1 Puff IH BID 1 PUFF = 90 MCG Senna S Tablet (Sennosides/Docusate Sodium) 1 Each Tablet 1 Tab PO DAILY Duloxetine HCl 30 Mg Capsule.dr 90 Mg PO DAILY TAKES 3 (30MG) CAPSULES Ondansetron Odt (Ondansetron) 4 Mg Tab.rapdis 4 Mg PO Q8H PRN Hydrocodone/Acetaminophen 5/325mg Tablet (Acetaminophen/Hydrocodone Bitart) 1 Each Tablet 1 Tab PO Q4H PRN Fentanyl Patch 12 MCG (Fentanyl) 1 Each Patch.td72 12 Mcg TD Q72H APPLY WITH 25MCG PATCH TO EQUAL 37MCG Fentanyl Patch 25 MCG (Fentanyl) 1 Each Patch.td72 25 Mcg TD Q72H APPLY WITH 12 MCG PATCH FOR A TOTAL DOSE OF 37 MCG Ropinirole HCl 3 Mg Tablet 3 Mg PO TID Gabapentin 400 Mg Capsule 400 Mg PO TID Ranitidine HCl 150 Mg Tablet 150 Mg PO HS Instructions to patient/family Please see electronic discharge instructions given to patient. Clinical Quality Measures DVT/VTE Risk/Contraindication: Risk Factor Score Per Nursin RFS Level Per Nursing on Admit: 4+=Very High Copy Copies To 1: ALEXANDRA ZAMORA MD Problem Qualifiers (1) Right lower lobe pneumonia: Pneumonia type: due to unspecified organism Qualified Codes: J18.1 - Lobar pneumonia, unspecified organism BLOSSOM TAMEZ MD Oct 05, 2018 10:48
--- NOTE | 2018-10-05 12:39 | NUR ---
Palliative Care Rn and Dr. Montes De Oca rounded on patient earlier this morning. She is alert and has no further decline. We are planning to discharge her with return to previous placement of [facility] include 234 beds at the [facility] with [facility]. All orders have been faxed to both agencies. EMS to transport patient due to her need for O2, her inability to get out of bed and lethargy off and on.
[2018-10-05 14:36] VITALS: BP 112/58
== END 2018-10-05 14:52 | disposition hospice, inpatient (51) | DRG 951 ==
LOC: EDUNIT# 20:00 → ER 20:01 → 4TH 21:45 → OBSVTOIN 10-04 13:26
PROVIDERS: ADMIT Internal Medicine; ATTEND Internal Medicine
DX: Z51.5 Encounter for palliative care (principal); A41.9 Sepsis, unspecified organism; J18.1 Lobar pneumonia, unspecified organism; R65.21 Severe sepsis with septic shock; R09.02 Hypoxemia; J44.9 Chronic obstructive pulmonary disease, unspecified; F03.90 Unspecified dementia, unspecified severity, without behavioral disturbance, psychotic disturbance, mood disturbance, and anxiety; I10 Essential (primary) hypertension; Z66 Do not resuscitate; F17.210 Nicotine dependence, cigarettes, uncomplicated; Z86.73 Personal history of transient ischemic attack (TIA), and cerebral infarction without residual deficits
CPT/HCPCS: 36415; 51701; 71045; 80053; 81000; 82805; 83605; 83735; 85007; 85027; 85610; 85730; 87040; 87077; 87088; 87186; 87804; 90471; 93005; 94640; G0378